=== PATIENT | male | born 1950 | race African-American/Black ===

== ENCOUNTER 2016-06-01 12:27 | Inpatient (IN) ==
[2016-06-01] MEDS ORDERED: KETOROLAC 30 MG/1 ML VIAL IV STA (15:29)
[2016-06-01] MEDS ORDERED: FUROSEMIDE 40 MG/4 ML VIAL IV STA (15:31)
--- NOTE | 2016-06-01 15:34 | Emergency Department Note ---
Arrival - Arrival Chief Complaint: Urogenital - Male Stated Complaint: inflammation (swollen Testicals) frequent urinatio ED Nursing Triage Note: C/O SWOLLEN TESTICLES WITH ONSET TWO DAYS AGO. PT STATES HE HAS URINARY FREQUENCY Mode of Arrival: Wheelchair Limitations: No Limitations Source: Patient Time Seen by Provider: 06/01/16 15:29 - History of Present Illness HPI Narrative: This 66-year-old black male presents with a history of lower extremity edema as well as rapid swelling and tenderness of the scrotal sac over the last 3 days. The patient relates a problem with fluid balance and previous problems in this regard but has been taken off all diuretics due to his renal function. Associated with this has been an ever increasing decline in stream with difficulty genreating flow of late. The patient denies any history of prostate problems, CHF, orthopnea, PND, dyspnea on exertion, or chest pain. He does complain of dysuria, urgency, frequency, and hesitancy without any complaints of chills, fever, nausea, or vomiting. He currently appears in no acute distress. Onset (ago): day(s) (patient presents 3 days post-onset of symptoms) Consistency: constant Allergies/Adverse Reactions: Allergies Allergy/AdvReac Type Severity Reaction Status Date / Time No Known Allergies Allergy Unverified 06/01/16 12:45 Home Medications: Home Medications Medication Instructions Recorded Confirmed Type amLODIPine [Norvasc] 10 mg PO DAILY 06/01/16 06/01/16 History cloNIDine TAB [Catapres Tab] 0.1 mg PO DAILY 06/01/16 06/01/16 History Review of System - Review of System 12 point system: reviewed and no additional remarkable complaints except as stated - Review of System Constitutional: Present: as per HPI Respiratory: Present: as per HPI Cardiovascular: Present: as per HPI Gastrointestinal: Present: as per HPI Genitourinary male: Present: as per HPI Medical,Surgical,& Family Hx - Medical History Cardio: History of: Hypertension Renal: History of: Renal Problems - Family History Family History: Reports;: Family Diabetes, Family Hypertension, Family Stroke - Social History Smoking Status: Never smoker Frequency of Alcohol Use: None Type of Drug Use: None Exam Physical Examination: GENERAL: Well developed, well nourished black male in no acute distress. HEENT: Normocephalic. No trauma. Moist mucous membranes. EOMI. PERRLA. ENT clear NECK: Supple. No adenopathy. CARDIAC: Regular. No murmurs. Heart rate 63 CHEST: Clear to auscultation. No respiratory distress. O2 sat 98% ABDOMEN: Soft. Nontender. Active bowel sounds.: Scrotal edema with bilateral testicular tenderness EXTREMITIES: No trauma. Normal ROM. 1+ pedal edema. SKIN: No diaphoresis. No rash. NEURO: Alert. Neuro intact No focal deficits. Vital Signs: Vital Signs Temperature 98.6 F 06/01/16 12:45 Pulse Rate 63 06/01/16 12:45 Respiratory Rate 18 06/01/16 12:45 Blood Pressure 193/76 06/01/16 12:45 O2 Sat by Pulse Oximetry 98 06/01/16 12:45 Course - Reevaluation(s) Reevaluation #1: Discussed with patient his advancing renal disease and necessity for admission for further diuresis to be done safely. - Consultations Consultation #1: Discussed with Dr. Ansari who will admit for further evaluation and treatment. Results - Labs CBC & BMP: 06/01/16 15:48 06/01/16 15:48 Labs: I reviewed the laboratory and noted the significant abnormalities in renal function as well as mild hyperkalemia and unexpected anemia. - Diagnostic Findings Procedure: Ultrasound: image reviewed by me, report reviewed by me (scrotum bilateral hydroceles right greater than left but generalized edema of the scrotum) Disposition Clinical Impression: advanced scrotal edema, renal insufficiency Case discussed with: patient, patient's family Disposition: Still a Patient Condition: Guarded Time of Disposition: 16:38
[2016-06-01] MEDS ORDERED: FUROSEMIDE 100 MG/10 ML VIAL ONE (15:55)
[2016-06-01] MEDS ORDERED: KETOROLAC 30 MG/1 ML VIAL ONE (15:55)
[2016-06-01 15:57] LABS: Basophils % 0.6 % (0.0-0.8); Eosinophils % 0.4 % (0.00-10.9); Hematocrit 29.2 VOL% (42.0-52.0); Hemoglobin 9.1 GM/DL (14.0-18.0); Immature Granulocytes % 0.4 %; Immature Granulocytes Absolute 0.03 #; Lymphocytes % 14.2 % (21.2-54.2); Mean Corpuscular HGB Conc 31.2 GM/DL (32-36); Mean Corpuscular Hemoglobin 24 PG (27-34); Mean Corpuscular Volume 78.1 FL (87-102); Mean Platelet Volume 10.7 FL (9.6-12.0); Monocytes # 0.5 10*3/uL (0.11-0.8); Monocytes % 7.5 % (1.7-12.7); Neutrophils # 5.4 10*3/uL (1.4-7.4); Neutrophils % 76.9 % (38.7-73.9); Platelet Count 326 T/CUMM (130-400); Red Blood Count 3.74 MC/CUMM (3.8-5.5); Red Cell Distribution Width 14.2 % (9.3-17.3)
[2016-06-01 16:14] LABS: Apearance,Urine CLEAR (Clear); Bilirubin,Urine Negative (Negative); Blood, Urine Small mg/dL (Negative); Glucose,Urine (UA) 150 mg/dL (Negative); Ketones,Urine Negative (Negative); Mucus,Urine Occasional /LPF (Occasional); Nitrite,Urine Negative (Negative); Protein,Urine >=500 MG/DL; RBC,Urine 2 /HPF (0-4); Urine Color Straw (Yellow); Urine Specific Gravity 1.012 (1.001-1.035); Urine Urobilinogen < 2.0 EU/DL (0.2-1.0); WBC,Urine 1 /HPF (0-6)
[2016-06-01 16:25] LABS: Alanine Aminotransferase 17 U/L (16-61); Albumin 2.2 G/DL (3.4-5.0); Alkaline Phosphatase 122 U/L (45-117); Aspartate Amino Transferase 16 U/L (0-37); Bilirubin,Total < 0.39 MG/DL (0.2-1.0); Blood Urea Nitrogen 47 MG/DL (7-18); Calcium 8.7 MG/DL (8.5-10.1); Glucose 122 MG/DL (74-106); Osmolality,Calculated 295.1 MOS/KG (273-304); Potassium 5.6 MMOL/L (3.5-5.1); Sodium 142 MMOL/L (136-145)
--- NOTE | 2016-06-01 16:28 | Ultrasound Report ---
Exam: US scrotum Date: 06/01/2016 3:29 PM Indication: Testicular swelling, pain. No reported trauma Comparison: None Findings: Right testicle. Minimal heterogeneity is noted within the testicular parenchyma. There is preserved color Doppler blood flow and arterial blood flow on spectral analysis within the testicle. The right testicle measures 3.8 x 2.9 x 4.1 cm. A moderate to large right hydrocele with minimal echogenic debris is noted. Right epididymis right epididymal head measures 1.3 x 0.9 cm. Left testicle. Marked edematous changes are noted within the overlying left hemiscrotum. There is a [id number] hydrocele noted. Slight heterogeneity is noted within the testicular parenchyma. The testicle measures 3.9 x 3.1 x 2.8 cm. Color Doppler demonstrates preserved blood flow with arterial Doppler demonstrating a normal arterial waveform within the testicle. Left epididymis. Small digital head cyst is noted measuring up to 8 mm maximum dimension. The right epididymis measures 2 x 1.4 cm Impression: 1. Preserved blood flow within both testicles. Small left hydrocele and moderate to large right hydrocele with some debris suggested. Essentially normal appearance of the epididymis bilaterally. 2. Marked edematous changes of the left hemiscrotum may represent overlying cellulitis or other noninfectious edema. PROCEDURE INTERPRETED AT [facility] DEPARTMENT OF RADIOLOGY Final Report Signed by: Jean Claude Simeon
[2016-06-01] MEDS ORDERED: ONDANSETRON 4 MG/2 ML VIAL IV PRN (16:40)
--- NOTE | 2016-06-01 17:10 | XRay Report ---
Exam: XR chest 1V portable Date: 06/01/2016 4:40 PM Indication: Acute renal failure Comparison: 11/05/2011 Technical: AP portable Findings: Cardiomegaly is present. External cardiac leads are present. No defined effusions. Mediastinum and bony structures are intact. No pneumothorax. Impression: Cardiomegaly without overt decompensation infiltrates or effusions PROCEDURE INTERPRETED AT [facility] DEPARTMENT OF RADIOLOGY Final Report Signed by: Dr. Kam Aaron
[2016-06-01] MEDS ORDERED: ACETAMINOPHEN 325 MG TABLET PO PRN (17:50)
[2016-06-01 17:55] LABS: Prostate Specific Antigen Diag 0.3 NG/ML (0-4)
[2016-06-01] MEDS ORDERED: SODIUM POLYSTYRENE SULFATE 15 GM/60 ML BOTTLE ONE (19:15)
[2016-06-01] MEDS: SODIUM POLYSTYRENE SULFATE 15 GM/60 ML BOTTLE PO SCH ×2 (19:18→23:13)
[2016-06-01] MEDS: INSULIN LISPRO 100 UNIT/ML SUBCUT SCH (21:18)
[2016-06-01] MEDS: FUROSEMIDE 20 MG TABLET PO SCH (21:26)
[2016-06-01] MEDS: METOPROLOL TARTRATE 50 MG TABLET PO SCH (21:26)
[2016-06-01] MEDS: DOCUSATE SODIUM 100 MG CAPSULE PO SCH (21:26)
[2016-06-02] MEDS ORDERED: cloNIDine 0.1 MG TABLET PO ONE (05:00)
[2016-06-02 05:01] LABS: Basophils % 0.6 % (0.0-0.8); Eosinophils # 0.1 10*3/uL (0.0-0.87); Eosinophils % 1.4 % (0.00-10.9); Hematocrit 23.1 VOL% (42.0-52.0); Hemoglobin 7.1 GM/DL (14.0-18.0); Immature Granulocytes % 0.4 %; Immature Granulocytes Absolute 0.02 #; Lymphocytes # 0.9 10*3/uL (1.4-4.0); Lymphocytes % 18.1 % (21.2-54.2); Mean Corpuscular HGB Conc 30.7 GM/DL (32-36); Mean Corpuscular Hemoglobin 24 PG (27-34); Mean Corpuscular Volume 76.5 FL (87-102); Mean Platelet Volume 10.6 FL (9.6-12.0); Monocytes # 0.6 10*3/uL (0.11-0.8); Monocytes % 11.8 % (1.7-12.7); Neutrophils # 3.3 10*3/uL (1.4-7.4); Neutrophils % 67.7 % (38.7-73.9); Platelet Count 280 T/CUMM (130-400); Red Blood Count 3.02 MC/CUMM (3.8-5.5); Red Cell Distribution Width 14.1 % (9.3-17.3); White Blood Count 4.9 T/CUMM (4-12)
[2016-06-02] MEDS: SODIUM POLYSTYRENE SULFATE 15 GM/60 ML BOTTLE PO SCH ×3 (05:06→16:34)
[2016-06-02 05:19] LABS: Calcium 7.8 MG/DL (8.5-10.1); Osmolality,Calculated 304.4 MOS/KG (273-304)
[2016-06-02 05:26] LABS: Albumin 1.7 G/DL (3.4-5.0); Bilirubin,Total 1.3 MG/DL (0.2-1.0); Calcium 7.9 MG/DL (8.5-10.1); Magnesium 2.2 MG/DL (1.8-2.4); Osmolality,Calculated 303.4 MOS/KG (273-304); Potassium 5.1 MMOL/L (3.5-5.1); Risk Ratio 3.46; Total Protein 5.3 G/DL (6.4-8.3); VLDL CHOLESTEROL 18.6 MG/DL
[2016-06-02 05:45] LABS: Free T4 (Free Thyroxine) 1.11 NG/DL (0.76-1.46); Thyroid Stimulating Hormone 5.1 uIU/ml (0.358-3.74)
[2016-06-02] MEDS ORDERED: DEXTROSE 50% 25 GM/50 ML VIAL IV PRN (08:20)
[2016-06-02] MEDS ORDERED: GLUCAGON 1 MG VIAL IM PRN (08:20)
--- NOTE | 2016-06-02 08:25 | Family Practice History&Phys ---
Assessment and Plan (1) renal insufficiency Status: Acute Assessment and plan: Last creatinine when seeing Dr. Oliveira was 3.6. It has almost doubled since that time. Current Visit: Yes (2) benign prostatic hypertrophy Status: Chronic Assessment and plan: Patient is having significant problems with frequency of urination and hesitancy.. May be urinary tract retention is causing worsening of his renal status. I have ordered Gonzalez catheter placed to check for residual. Also consult to nephrology ordered bilateral renal ultrasounds Current Visit: Yes (3) peripheral edema Status: Chronic Assessment and plan: Secondary to his ranal insufficiency Current Visit: Yes (4) anemia probably anemia of chronic diseas Status: Acute Assessment and plan: We will monitor closely. If continues to decline may need to transfuse Current Visit: Yes (5) hypertension Status: Chronic Assessment and plan: Procedure poorly controlled. Have modified medications Current Visit: Yes (6) type 2 diabetes mellitus Status: Chronic Assessment and plan: Has started sliding scale we'll monitor closely Current Visit: Yes History of Present Illness Chief complaint: edema and renal insufficiency History of present illness: Mr. Bazzi is a 66 year old male This 66-year-old black male presents with a history of lower extremity edema as well as rapid swelling and tenderness of the scrotal sac over the last 3 days. The patient relates a problem with fluid balance and previous problems in this regard but has been taken off all diuretics due to his renal function. Associated with this has been an ever increasing decline in stream with difficulty genreating flow of late. The patient denies any history of prostate problems, CHF, orthopnea, PND, dyspnea on exertion, or chest pain. He does complain of dysuria, urgency, frequency, and hesitancy without any complaints of chills, fever, nausea, or vomiting. He currently appears in no acute distress. In view of the acute changes will admit further evaluation therapy Home Medications Medication Instructions Recorded Confirmed Type amLODIPine [Norvasc] 10 mg PO DAILY 06/01/16 06/01/16 History cloNIDine TAB [Catapres Tab] 0.1 mg PO DAILY 06/01/16 06/01/16 History Allergies Allergy/AdvReac Type Severity Reaction Status Date / Time No Known Allergies Allergy Unverified 06/01/16 12:45 Medical,Surgical,& Family Hx - Medical History Cardio: History of: Hypertension Endocrine: History of: Diabetes Mellitus (NIDDM), Thyroid Disorder Renal: History of: Renal Problems - Surgical History HEENT Surgeries: Surgical HX of: Eye Surgery (bilateral cataracts and detached retina) - Family History Family History: Reports;: Family Diabetes, Family Hypertension, Family Stroke - Social History Smoking Status: Never smoker Frequency of Alcohol Use: None Type of Drug Use: None Marital Status: Lives With:: Spouse Functional capacity: independent ambulation Exam - Constitutional Vitals: Period Temp Pulse Resp BP Sys/Vazquez Pulse Ox Last 24 Hr 98.1 F-99.0 F 50-62 12-20 166-202/76-88 97-100 General appearance: mild distress - Head Head exam: Present: normal inspection - ENT ENT exam: Present: normal exam - Neck Neck exam: Present: normal inspection - Respiratory Respiratory exam: Present: clear to auscultation bilaterally - Cardiovascular Cardiovascular exam: Present: regular rate and rhythm - GI/Abdominal GI/Abdominal exam: Present: normal bowel sounds, soft - Extremities Exam Extremities exam: Present: other (patient is significant edema of the scrotum and lower extremities) - Back Exam Back exam: Present: normal inspection - Neurological Exam Neurological exam: Present: alert - Psychiatric Psychiatric exam: Present: normal affect - Skin Skin exam: Present: normal color Results - Labs CBC & BMP: 06/02/16 04:26 06/02/16 04:26
--- NOTE | 2016-06-02 08:39 | EKG Report ---
Stationary ECG Study [facility] Test Date: 06/02/2016 7:30:14 AM Pat Name: JODY GOODE Department: Room: 270 Gender: M Pattern Attendant: AIREL : 1950 Requested by: Azael Nguyễn Order Number: [id number] Reading MD: JENNIFER ALBERT Intervals [place] Rate: 48 P: 42 VT: 168 QRS: -21 QRSD: 97 T: 150 QT: 476 QTc: 444 Interpretive Statements SINUS BRADYCARDIA INCOMPLETE RIGHT BUNDLE BRANCH BLOCK PROBABLE SEPTAL MYOCARDIAL INFARCTION, OF INDETERMINATE AGE MODERATE T-WAVE ABNORMALITY, CONSIDER ANTEROLATERAL ISCHEMIA Electronically Signed On 06-03-16 21:40:23 STAFF REPORTER by JENNIFER ALBERT [email or web address]
--- NOTE | 2016-06-02 08:59 | Ultrasound Report ---
Bilateral renal ultrasound. Indication: Renal insufficiency. No prior studies. The kidneys are normal in size. The right kidney measures 10.5 x 4.0 x 5.4 cm and the left measures 9.5 x 6.0 x 5.5 cm. The cortical thickness is normal bilaterally. There is increased parenchymal echogenicity of the kidneys, right more so than left. This is a finding which can be seen with medical renal disease. Arterial flow is documented to each kidney. There is a 9 mm cyst at the inferior pole of the left kidney. No hydronephrosis. No solid masses. No abnormal calcifications. Impression: Increased parenchymal echogenicity, often seen with medical renal disease. Tiny left inferior pole renal cyst. PROCEDURE INTERPRETED AT [facility] DEPARTMENT OF RADIOLOGY Final Report Signed by: Dr. Dorota Pozo
[2016-06-02] MEDS ORDERED: cloNIDine 0.1 MG TABLET PO SCH (09:00)
[2016-06-02 09:31] LABS: Hematocrit 26.2 VOL% (42.0-52.0); Hemoglobin 8.1 GM/DL (14.0-18.0)
[2016-06-02 09:32] LABS: Basophils % 0.6 % (0.0-0.8); Eosinophils # 0.1 10*3/uL (0.0-0.87); Eosinophils % 1.5 % (0.00-10.9); Hematocrit 25.6 VOL% (42.0-52.0); Hemoglobin 8.1 GM/DL (14.0-18.0); Immature Granulocytes % 0.4 %; Immature Granulocytes Absolute 0.02 #; Lymphocytes # 0.8 10*3/uL (1.4-4.0); Mean Corpuscular HGB Conc 31.6 GM/DL (32-36); Mean Corpuscular Hemoglobin 24 PG (27-34); Mean Corpuscular Volume 77.1 FL (87-102); Mean Platelet Volume 10.8 FL (9.6-12.0); Monocytes # 0.5 10*3/uL (0.11-0.8); Monocytes % 9.1 % (1.7-12.7); Neutrophils % 73.4 % (38.7-73.9); Platelet Count 320 T/CUMM (130-400); Red Blood Count 3.32 MC/CUMM (3.8-5.5); Red Cell Distribution Width 14.2 % (9.3-17.3); White Blood Count 5.4 T/CUMM (4-12)
[2016-06-02] MEDS: INSULIN LISPRO 100 UNIT/ML SUBCUT SCH ×5 (09:40→22:17)
[2016-06-02] MEDS: DOCUSATE SODIUM 100 MG CAPSULE PO SCH ×2 (09:43→20:05)
[2016-06-02] MEDS: FUROSEMIDE 20 MG TABLET PO SCH ×2 (09:43→16:32)
[2016-06-02] MEDS: cloNIDine 0.1 MG TABLET PO SCH ×2 (09:43→14:53)
[2016-06-02] MEDS: amLODIPine 10 MG TABLET PO SCH (09:43)
[2016-06-02] MEDS: METOPROLOL TARTRATE 50 MG TABLET PO SCH ×2 (09:43→20:05)
[2016-06-02] MEDS: PANTOPRAZOLE 40 MG TABLET PO SCH (09:46)
[2016-06-02 10:12] LABS: Folate 8.7 NG/ML (5.4-24.0); Vitamin B12 564 PG/ML (211-911)
[2016-06-02 10:37] LABS: Sedimentation Rate-Westergren 124 MM/HR (0-20)
--- NOTE | 2016-06-02 12:59 | Nephrology Progress Note ---
Nephrology - PN: Subj Interval history: The patient is a 66-year-old man who presented with scrotal edema and tenderness. He is also had an increase in lower extremity edema. He has a history of chronic renal failure secondary to diabetic nephropathy. His last creatinine in December 2015 was 3.1. It was 3.6 and November 2015. He reports urinary hesitancy but no hematuria. He denies flank pain. He has had no fever or chills. He denies orthopnea or PND. Exam (PN)-Nephrology - Vital Signs Vital signs: Period Temp Pulse Resp BP Sys/Vazquez Pulse Ox Last 24 Hr 98.1 F-181 F 48-62 12-20 166-202/76-88 96-100 Exam: Gen.: Alert and oriented x3. ENT: Pupils equal round reactive to light. EOMs intact. Mucous membranes moist. Neck: Supple. No JVD or bruit. Cardiovascular: Regular rate and rhythm. No murmur rub or gallop Lungs: Clear Abdomen: Soft. Nontender. Positive bowel sounds. No organomegaly. Scrotal edema present Extremities: 1-2+ lower extremity edema - Lab 06/02/16 09:18 06/02/16 04:26 Most recent lab results Calcium 7.9 MG/DL (8.5-10.1) L 06/02/16 04:26 Magnesium 2.2 MG/DL (1.8-2.4) 06/02/16 04:26 Assessment and Plan (1) Chronic kidney disease, stage IV (severe) Status: Acute Assessment and plan: 66-year-old man admitted with: * Scrotal edema. He has bilateral hydrocele. * Chronic renal failure, stage IV. Renal function has declined over the past 5 months. He has underlying diabetic nephropathy. He denies use of NSAIDs recently. However he was given one dose of Toradol in the ER. * Proteinuria. Albumin is quite low. He probably has nephrotic syndrome secondary to diabetes * Diabetes mellitus * Hypertension * Anemia. Current Visit: Yes (2) anemia probably anemia of chronic diseas Status: Acute Current Visit: Yes (3) benign prostatic hypertrophy Status: Chronic Current Visit: Yes (4) hypertension Status: Chronic Current Visit: Yes (5) type 2 diabetes mellitus Status: Chronic Current Visit: Yes (6) Proteinuria Status: Acute Current Visit: Yes
[2016-06-02 15:04] LABS: Hematocrit 21.6 VOL% (42.0-52.0)
[2016-06-02 15:05] LABS: Hemoglobin 6.8 GM/DL (14.0-18.0)
[2016-06-02] MEDS ORDERED: SODIUM CHLORIDE 0.9% 250 ML IV PRN (17:55)
[2016-06-02] MEDS: TAMSULOSIN 0.4 MG CAPSULE PO SCH (20:05)
[2016-06-02] MEDS ORDERED: amLODIPine 5 MG TABLET PO ONE (21:51)
[2016-06-03 02:04] LABS: Apearance,Urine CLEAR (Clear); Bacteria,Urine Occasional /HPF (Few); Bilirubin,Urine Negative (Negative); Blood, Urine Small mg/dL (Negative); Glucose,Urine (UA) 50 mg/dL (Negative); Ketones,Urine Negative (Negative); Nitrite,Urine Negative (Negative); Protein,Urine >=500 MG/DL; RBC,Urine 1 /HPF (0-4); Urine Color Straw (Yellow); Urine Specific Gravity 1.005 (1.001-1.035); Urine Urobilinogen < 2.0 EU/DL (0.2-1.0); WBC,Urine 1 /HPF (0-6)
[2016-06-03] MEDS: INSULIN LISPRO 100 UNIT/ML SUBCUT SCH ×3 (08:02→16:41)
[2016-06-03 08:03] LABS: Basophils % 0.4 % (0.0-0.8); Eosinophils # 0.1 10*3/uL (0.0-0.87); Eosinophils % 1.7 % (0.00-10.9); Hematocrit 26.7 VOL% (42.0-52.0); Immature Granulocytes % 0.2 %; Immature Granulocytes Absolute 0.01 #; Lymphocytes % 18.5 % (21.2-54.2); Mean Corpuscular HGB Conc 31.5 GM/DL (32-36); Mean Corpuscular Hemoglobin 25 PG (27-34); Mean Platelet Volume 10.7 FL (9.6-12.0); Monocytes # 0.7 10*3/uL (0.11-0.8); Monocytes % 12.6 % (1.7-12.7); Neutrophils # 3.5 10*3/uL (1.4-7.4); Neutrophils % 66.6 % (38.7-73.9); Red Blood Count 3.38 MC/CUMM (3.8-5.5); Red Cell Distribution Width 14.4 % (9.3-17.3); White Blood Count 5.3 T/CUMM (4-12)
[2016-06-03] MEDS: SODIUM CHLORIDE 0.45% 1,000 ML IV SCH ×2 (08:03→08:40)
[2016-06-03 08:13] LABS: Hemoglobin 8.4 GM/DL (14.0-18.0); Platelet Count 246 T/CUMM (130-400)
[2016-06-03 08:31] LABS: Alanine Aminotransferase 10 U/L (16-61); Albumin 1.6 G/DL (3.4-5.0); Alkaline Phosphatase 89 U/L (45-117); Aspartate Amino Transferase 10 U/L (0-37); Bilirubin,Total < 0.39 MG/DL (0.2-1.0); Blood Urea Nitrogen 43 MG/DL (7-18); Calcium 7.3 MG/DL (8.5-10.1); Glucose 120 MG/DL (74-106); Potassium 4.3 MMOL/L (3.5-5.1); Sodium 143 MMOL/L (136-145); Total Protein 5.2 G/DL (6.4-8.3)
[2016-06-03] MEDS: amLODIPine 10 MG TABLET PO SCH (08:33)
[2016-06-03] MEDS: PANTOPRAZOLE 40 MG TABLET PO SCH (08:33)
[2016-06-03] MEDS: FUROSEMIDE 20 MG TABLET PO SCH ×2 (08:33→16:40)
[2016-06-03] MEDS: DOCUSATE SODIUM 100 MG CAPSULE PO SCH ×2 (08:33→20:08)
[2016-06-03] MEDS: METOPROLOL TARTRATE 50 MG TABLET PO SCH ×2 (08:34→20:08)
[2016-06-03] MEDS: hydrALAZINE 25 MG TABLET PO SCH ×3 (08:42→16:41)
[2016-06-03 09:35] LABS: Albumin (SPE) 1.9 G/DL (3.2-5.3); Total Protein (Chem) 5.3 G/DL (6.4-8.2)
[2016-06-03 09:36] LABS: Albumin (SPE) Rel % 35.5 %; Alpha 1 (SPE) 0.3 G/DL (0.1-0.4); Alpha 1 (SPE) Rel % 5.3 %; Alpha 2 (SPE) 1.1 G/DL (0.4-1.0); Alpha 2 (SPE) Rel % 20.7 %; Beta (SPE) 0.7 G/DL (0.5-1.1); Beta (SPE) Rel % 13.4 %; Gamma (SPE) 1.3 G/DL (0.7-1.7); Gamma (SPE) Rel % 25.1 %
[2016-06-03 09:44] LABS: Albumin (UPER) 405.3 MG/DL; Albumin (UPER) Rel% 61.5 %; Alpha 1 (UPER) 61.3 MG/DL
[2016-06-03 09:45] LABS: Alpha 1 (UPER) Rel% 9.3 %; Alpha 2 (UPER) 34.3 MG/DL; Alpha 2 (UPER) Rel % 5.2 %; Beta (UPER) 50.7 MG/DL; Beta (UPER) Rel % 7.7 %; Gamma (UPER) 107.4 MG/DL; Gamma (UPER) Rel % 16.3 %
[2016-06-03 11:32] LABS: Hemoglobin A1 (Alkaline) 97.5 % (96.5-98.5); Hemoglobin A2 (Alkaline) 2.5 % (1.5-3.5)
--- NOTE | 2016-06-03 17:01 | Nephrology Progress Note ---
Nephrology - PN: Subj Interval history: He feels better overall today. No shortness of breath on room air. Exam (PN)-Nephrology - Vital Signs Vital signs: Period Temp Pulse Resp BP Sys/Vazquez Pulse Ox Last 24 Hr 96.9 F-98.8 F 45-51 16-20 175-228/75-97 96-98 Exam: ENT: Normal Cardiovascular: Regular rate and rhythm. No murmur rub or gallop Lungs: Clear Extremities: 1-2+ edema - Lab 06/03/16 07:50 06/03/16 07:50 Most recent lab results Calcium 7.3 MG/DL (8.5-10.1) L 06/03/16 07:50 Magnesium 2.2 MG/DL (1.8-2.4) 06/02/16 04:26 Assessment and Plan (1) Chronic kidney disease, stage IV (severe) Status: Acute Assessment and plan: 66-year-old man admitted with: * Scrotal edema. He has bilateral hydrocele. * Chronic renal failure, stage IV. Slightly improved renal function * Proteinuria. Albumin is quite low. Urine protein to creatinine ratio 5.3. This is consistent with nephrotic syndrome * Diabetes mellitus * Hypertension. Hydralazine added. Amlodipine will be decreased. It may be worsening lower activity edema * Anemia. Current Visit: Yes (2) anemia probably anemia of chronic diseas Status: Acute Current Visit: Yes (3) benign prostatic hypertrophy Status: Chronic Current Visit: Yes (4) hypertension Status: Chronic Current Visit: Yes (5) type 2 diabetes mellitus Status: Chronic Current Visit: Yes (6) Proteinuria Status: Acute Current Visit: Yes
[2016-06-03] MEDS ORDERED: amLODIPine 5 MG TABLET PO SCH (17:02)
--- NOTE | 2016-06-03 18:14 | Family Practice Progress Note ---
Family Practice - PN: Subj Interval history: Patient states that he generally feels better today. Blood pressure is still poorly controlled. Pulses been decreased. Discussed with Dr. Oliveira and will modify his hypertensive medications. His a.m. hemoglobin and hematocrit are stable at present. Was given 2 units of blood yesterday. His edema is slowly improving. Creatinine slightly improved at 5.5 today. I have ordered additional studies to evaluate his malignant hypertension. Hopefully will continue to improve Exam (Progress Note) - Constitutional Vitals: Period Temp Pulse Resp BP Sys/Vazquez Pulse Ox Last 24 Hr 96.9 F-98.8 F 45-51 16-20 175-228/75-97 96-98 Results - Labs CBC & BMP: 06/03/16 07:50 06/03/16 07:50 Assessment and Plan (1) renal insufficiency Status: Acute Assessment and plan: Last creatinine when seeing Dr. Oliveira was 3.6. It has almost doubled since that time. Current Visit: Yes (2) benign prostatic hypertrophy Status: Chronic Assessment and plan: Patient is having significant problems with frequency of urination and hesitancy.. May be urinary tract retention is causing worsening of his renal status. I have ordered Gonzalez catheter placed to check for residual. Also consult to nephrology ordered bilateral renal ultrasounds Current Visit: Yes (3) peripheral edema Status: Chronic Assessment and plan: Secondary to his ranal insufficiency Current Visit: Yes (4) anemia probably anemia of chronic diseas Status: Acute Assessment and plan: We will monitor closely. If continues to decline may need to transfuse Current Visit: Yes (5) hypertension Status: Chronic Assessment and plan: Procedure poorly controlled. Have modified medications Current Visit: Yes (6) type 2 diabetes mellitus Status: Chronic Assessment and plan: Has started sliding scale we'll monitor closely Current Visit: Yes
[2016-06-03] MEDS: TAMSULOSIN 0.4 MG CAPSULE PO SCH (20:08)
[2016-06-04] MEDS: INSULIN LISPRO 100 UNIT/ML SUBCUT SCH ×5 (00:28→20:07)
[2016-06-04 05:40] LABS: Calcium 7.5 MG/DL (8.5-10.1); Osmolality,Calculated 297.8 MOS/KG (273-304); Potassium 4.4 MMOL/L (3.5-5.1)
[2016-06-04] MEDS: SODIUM CHLORIDE 0.45% 1,000 ML IV SCH (09:15)
[2016-06-04] MEDS: PANTOPRAZOLE 40 MG TABLET PO SCH (09:16)
[2016-06-04] MEDS: DOCUSATE SODIUM 100 MG CAPSULE PO SCH ×2 (09:16→20:00)
[2016-06-04] MEDS: FUROSEMIDE 20 MG TABLET PO SCH ×2 (09:16→15:41)
[2016-06-04] MEDS: METOPROLOL TARTRATE 50 MG TABLET PO SCH (09:16)
[2016-06-04 09:33] LABS: Basophils % 0.4 % (0.0-0.8); Eosinophils # 0.1 10*3/uL (0.0-0.87); Eosinophils % 1.7 % (0.00-10.9); Hematocrit 28.8 VOL% (42.0-52.0); Hemoglobin 9.1 GM/DL (14.0-18.0); Immature Granulocytes % 0.4 %; Immature Granulocytes Absolute 0.02 #; Lymphocytes # 0.9 10*3/uL (1.4-4.0); Lymphocytes % 17.5 % (21.2-54.2); Mean Corpuscular HGB Conc 31.6 GM/DL (32-36); Mean Corpuscular Hemoglobin 25 PG (27-34); Mean Corpuscular Volume 78.5 FL (87-102); Mean Platelet Volume 10.9 FL (9.6-12.0); Monocytes # 0.6 10*3/uL (0.11-0.8); Monocytes % 11.2 % (1.7-12.7); Neutrophils # 3.7 10*3/uL (1.4-7.4); Neutrophils % 68.8 % (38.7-73.9); Platelet Count 267 T/CUMM (130-400); Red Blood Count 3.67 MC/CUMM (3.8-5.5); Red Cell Distribution Width 13.7 % (9.3-17.3); White Blood Count 5.4 T/CUMM (4-12)
--- NOTE | 2016-06-04 12:49 | Nephrology Progress Note ---
Nephrology - PN: Subj Interval history: He feels better overall. He denies shortness of breath or chest pain. Heart rate has been in the low to mid 40s. Exam (PN)-Nephrology - Vital Signs Vital signs: Period Temp Pulse Resp BP Sys/Vazquez Pulse Ox Last 24 Hr 97.3 F-98.2 F 16-48 16-18 177-193/75-91 98-99 Exam: ENT: Normal Cardiovascular: Regular rate and rhythm. No murmur rub or gallop Lungs: Clear Extremities: 1-2+ edema - Lab 06/04/16 09:01 06/04/16 04:30 Most recent lab results Calcium 7.5 MG/DL (8.5-10.1) L 06/04/16 04:30 Magnesium 2.2 MG/DL (1.8-2.4) 06/02/16 04:26 Assessment and Plan (1) Chronic kidney disease, stage IV (severe) Status: Acute Assessment and plan: 66-year-old man admitted with: * Scrotal edema. He has bilateral hydrocele. * Chronic renal failure, stage IV. Slowly improving * Proteinuria. Albumin is quite low. Urine protein to creatinine ratio 5.3. This is consistent with nephrotic syndrome * Diabetes mellitus * Hypertension. Beta joseph will be decreased DT bradycardia. Hydralazine will be increased * Anemia. Current Visit: Yes (2) anemia probably anemia of chronic diseas Status: Acute Current Visit: Yes (3) benign prostatic hypertrophy Status: Chronic Current Visit: Yes (4) hypertension Status: Chronic Current Visit: Yes (5) type 2 diabetes mellitus Status: Chronic Current Visit: Yes (6) Proteinuria Status: Acute Current Visit: Yes
--- NOTE | 2016-06-04 18:26 | Family Practice Progress Note ---
Family Practice - PN: Subj Interval history: Patient states that he feels better overall. He can see some improvement in his edema. His weight is actually increased. Reviewed her lab studies which are stable today. His blood pressures have remained significantly elevated. He also has had a significant bradycardia. Decreased his metoprolol yesterday but his pulses remained in the 40s since that time. Dr. Oliveira for the reduced dosage of metoprolol today an increased dosage of Apresoline. His blood pressures have remained significantly elevated. Multiple studies are still pending. We will continue present evaluation and treatment plan Appearance-general alert and oriented HEENT-no acute changes Heart-regular rate and rhythm no murmurs Lungs-clear to auscultation Abdomen-soft and nontender still has some scrotal edema Extremities-slight edema but improved overall Neurological exam-stable to present Exam (Progress Note) - Constitutional Vitals: Period Temp Pulse Resp BP Sys/Vazquez Pulse Ox Last 24 Hr 97.3 F-98.2 F 16-53 16-20 185-195/78-91 98-99 Results - Labs CBC & BMP: 06/04/16 09:01 06/04/16 04:30 Assessment and Plan (1) renal insufficiency Status: Acute Assessment and plan: Last creatinine when seeing Dr. Oliveira was 3.6. It has almost doubled since that time. Current Visit: Yes (2) benign prostatic hypertrophy Status: Chronic Assessment and plan: Patient is having significant problems with frequency of urination and hesitancy.. May be urinary tract retention is causing worsening of his renal status. I have ordered Gonzalez catheter placed to check for residual. Also consult to nephrology ordered bilateral renal ultrasounds Current Visit: Yes (3) peripheral edema Status: Chronic Assessment and plan: Secondary to his ranal insufficiency Current Visit: Yes (4) anemia probably anemia of chronic diseas Status: Acute Assessment and plan: We will monitor closely. If continues to decline may need to transfuse Current Visit: Yes (5) hypertension Status: Chronic Assessment and plan: Procedure poorly controlled. Have modified medications Current Visit: Yes (6) type 2 diabetes mellitus Status: Chronic Assessment and plan: Has started sliding scale we'll monitor closely Current Visit: Yes
--- NOTE | 2016-06-04 18:37 | ECHO Report ---
Jluis Hussain Exam Date: 06/04/2016 10:28 Referring Physician: Technologist: Viridiana Jhaveri RDCS Age: 66 Ht (in): Wt (lb): Gender: M Exam Location: [facility] ([place]) Echo Indications: Chronic kidney disease, stage 4 (severe), Peripheral edema, Anemia, NIDDM, Essential (primary) hypertension BP: / HR: Rhythm: Sinus Technical Quality: IMPRESSIONS Normal left ventricular size, with severe concentric hypertrophy, without outflow tract obstruction. Normal systolic function, estimated left ventricle ejection fraction 60%. Grade 1 diastolic dysfunction. Mild biatrial enlargement. Mild mitral insufficiency. Moderate pulmonary hypertension. Small pericardial effusion. MEASUREMENTS (Male / Female) Normal Values 2D ECHO LV Diastolic Diameter PLAX 5.5 cm 4.2 - 5.9 / 3.9 - 5.3 cm LV Systolic Diameter PLAX 3.3 cm LV Fractional Shortening PLAX 39.6 % IVS Diastolic Thickness 1.9 cm 0.6 - 1.0 / 0.6 - 0.9 cm LVPW Diastolic Thickness 1.9 cm 0.6 - 1.0 / 0.6 - 0.9 cm RV Internal Dim ED PLAX 3.1 cm Aortic Root Diameter 3.6 cm LA Systolic Diameter LX 4.6 cm 3.0 - 4.0 / 2.7 - 3.8 cm DOPPLER TR Peak Velocity 345.0 cm/s TR Peak Gradient 47.6 mmHg FINDINGS Left Ventricle Normal left ventricular size, with severe concentric hypertrophy, without outflow tract obstruction. Normal systolic function, estimated left ventricle ejection fraction 60%. Grade 1 diastolic dysfunction. Right Ventricle The right ventricle is normal in size and function. Right Atrium The right atrium is mildly enlarged. Left Atrium The left atrium is mildly enlarged. Mitral Valve Structurally normal mitral valve, with mild insufficiency. Aortic Valve Structurally normal aortic valve, without stenosis or insufficiency. Tricuspid Valve Morphologically normal tricuspid valve. Mild tricuspid valve regurgitation. Tricuspid regurgitation velocities suggest a PAP of 58 mmHg. Pulmonic Valve Morphologically normal pulmonic valve. Trace pulmonary valve regurgitation. Pericardium Small amount of concentric pericardial effusion, up to 0.8 cm. No echocardiographic signs of tamponade. Aorta Normal ascending aorta dimension. Jean-Paul Low (Electronically Signed) Final Date: 04 June 2016 18:36
[2016-06-04] MEDS: TAMSULOSIN 0.4 MG CAPSULE PO SCH (20:00)
[2016-06-05 05:45] LABS: Basophils % 0.5 % (0.0-0.8); Eosinophils # 0.1 10*3/uL (0.0-0.87); Eosinophils % 1.2 % (0.00-10.9); Hematocrit 28.4 VOL% (42.0-52.0); Hemoglobin 9.3 GM/DL (14.0-18.0); Immature Granulocytes % 0.3 %; Immature Granulocytes Absolute 0.02 #; Lymphocytes # 0.7 10*3/uL (1.4-4.0); Lymphocytes % 11.8 % (21.2-54.2); Mean Corpuscular HGB Conc 32.7 GM/DL (32-36); Mean Corpuscular Hemoglobin 25 PG (27-34); Mean Corpuscular Volume 76.3 FL (87-102); Mean Platelet Volume 11.1 FL (9.6-12.0); Monocytes # 0.6 10*3/uL (0.11-0.8); Monocytes % 9.5 % (1.7-12.7); Neutrophils # 4.4 10*3/uL (1.4-7.4); Neutrophils % 76.7 % (38.7-73.9); Platelet Count 288 T/CUMM (130-400); Red Blood Count 3.72 MC/CUMM (3.8-5.5); Red Cell Distribution Width 13.9 % (9.3-17.3); White Blood Count 5.8 T/CUMM (4-12)
[2016-06-05 06:29] LABS: Calcium 7.4 MG/DL (8.5-10.1); Potassium 4.5 MMOL/L (3.5-5.1)
[2016-06-05] MEDS: PANTOPRAZOLE 40 MG TABLET PO SCH (08:56)
[2016-06-05] MEDS: DOCUSATE SODIUM 100 MG CAPSULE PO SCH ×2 (08:56→20:46)
[2016-06-05] MEDS: FUROSEMIDE 20 MG TABLET PO SCH ×2 (08:57→15:19)
[2016-06-05] MEDS: INSULIN LISPRO 100 UNIT/ML SUBCUT SCH ×4 (08:57→20:46)
[2016-06-05] MEDS: METOPROLOL TARTRATE 50 MG TABLET PO SCH (08:57)
[2016-06-05] MEDS: SODIUM CHLORIDE 0.45% 1,000 ML IV SCH (13:15)
--- NOTE | 2016-06-05 14:30 | Family Practice Progress Note ---
Family Practice - PN: Subj Interval history: Patient was admitted to the emergency room complaining of swelling in scrotum and lower extremities over the last several days. The patient was seen in the emergency room noted to have significant scrotal edema and was found to have a elevated creatinine of 6. Previous recorded creatinine was 3.2. Patient has been seen by Dr. Malachi Oliveira in the past and arrange follow-up appointments. Patient has not complied. I have not seen the patient in a number of months. Apparently his blood pressures have been running 180s-200 systolic range at home. She is gone over several weeks. His systolic blood pressure was 200 in the emergency room. Patient has continued to improve throughout admission but we have had significant difficulty controlling his hypertension. Have tried maximum dose of multiple meds but blood pressures remain significantly elevated. Had to reduce the beta blockers as his pulse got down in the 40s. This presently on the maximum dose of Apresoline, Catapres, Norvasc. And he was on metoprolol 100 twice daily for reducing to present dose. I discussed with Dr. Oliveira and will try to stop the Norvasc and start her on nifedipine. She felt that some of the edema could be secondary to the Norvasc but most likely is related to protein deficit. Cardiac echo revealed concentric hypertrophy with ejection fracture of 60%. His creatinine has improved slightly to 5.3 this p.m.. I have discussed in detail with patient and family and will have patient increase activity. Hopefully will begin to see an improvement in blood pressures. If blood pressure stabilizes may consider discharge over the weekend. Exam (Progress Note) - Constitutional Vitals: Period Temp Pulse Resp BP Sys/Vazquez Pulse Ox Last 24 Hr 96.8 F-97.8 F 43-54 16-20 160-205/79-88 93-99 Results - Labs CBC & BMP: 06/05/16 05:08 06/05/16 05:08 Assessment and Plan (1) renal insufficiency Status: Acute Assessment and plan: Last creatinine when seeing Dr. Oliveira was 3.6. It has almost doubled since that time. Current Visit: Yes (2) benign prostatic hypertrophy Status: Chronic Assessment and plan: Patient is having significant problems with frequency of urination and hesitancy.. May be urinary tract retention is causing worsening of his renal status. I have ordered Gonzalez catheter placed to check for residual. Also consult to nephrology ordered bilateral renal ultrasounds Current Visit: Yes (3) peripheral edema Status: Chronic Assessment and plan: Secondary to his ranal insufficiency Current Visit: Yes (4) anemia probably anemia of chronic diseas Status: Acute Assessment and plan: We will monitor closely. If continues to decline may need to transfuse Current Visit: Yes (5) hypertension Status: Chronic Assessment and plan: Procedure poorly controlled. Have modified medications Current Visit: Yes (6) type 2 diabetes mellitus Status: Chronic Assessment and plan: Has started sliding scale we'll monitor closely Current Visit: Yes
--- NOTE | 2016-06-05 16:22 | Nephrology Progress Note ---
Nephrology - PN: Subj Interval history: He denies shortness of breath or chest pain. Blood pressure remains elevated. Bradycardia has improved. Exam (PN)-Nephrology - Vital Signs Vital signs: Period Temp Pulse Resp BP Sys/Vazquez Pulse Ox Last 24 Hr 96.8 F-97.8 F 43-54 16-20 160-205/80-88 93-99 Exam: ENT: Normal Cardiovascular: Regular rate and rhythm. No murmur rub or gallop Lungs: Clear Extremities: 2+ edema - Lab 06/05/16 05:08 06/05/16 05:08 Most recent lab results Calcium 7.4 MG/DL (8.5-10.1) L 06/05/16 05:08 Magnesium 2.2 MG/DL (1.8-2.4) 06/02/16 04:26 Assessment and Plan (1) Chronic kidney disease, stage IV (severe) Status: Acute Assessment and plan: 66-year-old man admitted with: * Scrotal edema. He has bilateral hydrocele. * Chronic renal failure, stage IV. Slowly improving * Proteinuria. Albumin is quite low. Urine protein to creatinine ratio 5.3. This is consistent with nephrotic syndrome * Diabetes mellitus * Hypertension. Long-acting nifedipine has been added * Anemia. Current Visit: Yes (2) anemia probably anemia of chronic diseas Status: Acute Current Visit: Yes (3) benign prostatic hypertrophy Status: Chronic Current Visit: Yes (4) hypertension Status: Chronic Current Visit: Yes (5) type 2 diabetes mellitus Status: Chronic Current Visit: Yes (6) Proteinuria Status: Acute Current Visit: Yes
[2016-06-05] MEDS: TAMSULOSIN 0.4 MG CAPSULE PO SCH (20:46)
[2016-06-06 04:30] LABS: Basophils % 0.4 % (0.0-0.8); Eosinophils # 0.1 10*3/uL (0.0-0.87); Eosinophils % 1.1 % (0.00-10.9); Hematocrit 28.5 VOL% (42.0-52.0); Hemoglobin 9.1 GM/DL (14.0-18.0); Immature Granulocytes % 0.4 %; Immature Granulocytes Absolute 0.02 #; Lymphocytes # 0.8 10*3/uL (1.4-4.0); Lymphocytes % 14.9 % (21.2-54.2); Mean Corpuscular HGB Conc 31.9 GM/DL (32-36); Mean Corpuscular Hemoglobin 25 PG (27-34); Mean Corpuscular Volume 78.5 FL (87-102); Monocytes # 0.5 10*3/uL (0.11-0.8); Monocytes % 10.3 % (1.7-12.7); Neutrophils # 3.8 10*3/uL (1.4-7.4); Neutrophils % 72.9 % (38.7-73.9); Platelet Count 272 T/CUMM (130-400); Red Blood Count 3.63 MC/CUMM (3.8-5.5); Red Cell Distribution Width 13.9 % (9.3-17.3); White Blood Count 5.2 T/CUMM (4-12)
[2016-06-06 04:58] LABS: Calcium 7.3 MG/DL (8.5-10.1); Potassium 4.5 MMOL/L (3.5-5.1)
[2016-06-06] MEDS: DOCUSATE SODIUM 100 MG CAPSULE PO SCH ×2 (08:30→20:40)
[2016-06-06] MEDS: METOPROLOL TARTRATE 50 MG TABLET PO SCH (08:30)
[2016-06-06] MEDS: FUROSEMIDE 20 MG TABLET PO SCH ×2 (08:30→15:47)
[2016-06-06] MEDS: PANTOPRAZOLE 40 MG TABLET PO SCH (08:30)
[2016-06-06] MEDS: INSULIN LISPRO 100 UNIT/ML SUBCUT SCH ×4 (08:32→20:40)
--- NOTE | 2016-06-06 08:41 | Internal Med Progress Note ---
Assessment and Plan (1) hypertension Status: Chronic Assessment and plan: 66-year-old male admitted to acute care * Uncontrolled hypertension. His blood pressure medications have been changed. Will adjust * Chronic renal failure. Renal function is about the same. * Bilateral edema. Chronic Current Visit: Yes (2) Chronic kidney disease, stage IV (severe) Status: Acute Current Visit: Yes (3) peripheral edema Status: Chronic Current Visit: Yes (4) type 2 diabetes mellitus Status: Chronic Current Visit: Yes Internal Medicine - PN: Subj Interval history: He is feeling better. No chest pain or shortness of breath. No nausea or vomiting Exam (Progress Note) - Constitutional Vitals: Period Temp Pulse Resp BP Sys/Vazquez Pulse Ox Last 24 Hr 97.2 F-98.7 F 48-54 16-20 146-197/65-86 95-99 General appearance: over weight - Head Head exam: Present: normal inspection - Eye Eye exam: Present: other (Legally blind) - Neck Neck exam: Present: normal inspection - Respiratory Respiratory exam: Present: clear to auscultation bilaterally - Cardiovascular Cardiovascular exam: Present: regular rate and rhythm - Extremities Exam Extremities exam: Present: edema (2+) Results - Labs CBC & BMP: 06/06/16 03:59 06/06/16 03:59 Lab Results: I have reviewed the past 24 hour labs
--- NOTE | 2016-06-06 10:08 | Nephrology Progress Note ---
Nephrology - PN: Subj Interval history: Pt sitting on side of bed. Denies SOB/pain. Pt states he was admitted for high potassium and BLE edema. Creatinine up to 5.7 from 5.3 yesterday. K normal. Denies knowledge of high potassium containing foods. Exam (PN)-Nephrology - Vital Signs Vital signs: Period Temp Pulse Resp BP Sys/Vazquez Pulse Ox Last 24 Hr 97.2 F-98.7 F 48-54 16-20 146-197/65-86 95-99 - General Appearance General appearance: well-developed, well-nourished EENT: ATNC, PERRL, mucous membranes moist, hearing intact, vision intact Neck: no JVD, no carotid bruit Respiratory: no kyphosis, clear Cardiology: no murmurs, no rub, edema (tense, brawny to knees bilat) Gastrointestinal: normoactive bowel sounds, no tenderness Integumentary: no rash, warm and dry Neurologic: no focal deficit, no asterixis, alert and oriented x3 - Lab 06/06/16 03:59 06/06/16 03:59 Most recent lab results Calcium 7.3 MG/DL (8.5-10.1) L 06/06/16 03:59 Magnesium 2.2 MG/DL (1.8-2.4) 06/02/16 04:26 Assessment and Plan (1) CKD (chronic kidney disease) stage 5, GFR less than 15 ml/min Problem details: No uremic symptoms. No acute indication for renal replacement therapy at this time. Status: Acute Assessment and plan: Nutrition consult to provide handout of high potassium foods to avoid. Current Visit: Yes
[2016-06-06] MEDS: TAMSULOSIN 0.4 MG CAPSULE PO SCH (20:40)
[2016-06-07] MEDS: cloNIDine 0.1 MG TABLET PO PRN ×2 (01:17→07:35)
[2016-06-07] MEDS: SODIUM CHLORIDE 0.45% 1,000 ML IV SCH ×2 (01:17→09:56)
[2016-06-07 04:58] LABS: Basophils % 0.5 % (0.0-0.8); Eosinophils # 0.1 10*3/uL (0.0-0.87); Eosinophils % 1.1 % (0.00-10.9); Immature Granulocytes % 0.3 %; Immature Granulocytes Absolute 0.02 #; Lymphocytes # 0.8 10*3/uL (1.4-4.0); Mean Corpuscular HGB Conc 31.3 GM/DL (32-36); Mean Corpuscular Hemoglobin 25 PG (27-34); Mean Corpuscular Volume 78.8 FL (87-102); Mean Platelet Volume 11.3 FL (9.6-12.0); Monocytes # 0.6 10*3/uL (0.11-0.8); Neutrophils # 4.8 10*3/uL (1.4-7.4); Neutrophils % 76.1 % (38.7-73.9); Platelet Count 326 T/CUMM (130-400); Red Blood Count 4.06 MC/CUMM (3.8-5.5); Red Cell Distribution Width 14.3 % (9.3-17.3); White Blood Count 6.3 T/CUMM (4-12)
[2016-06-07 05:38] LABS: Calcium 7.6 MG/DL (8.5-10.1); Osmolality,Calculated 293.3 MOS/KG (273-304); Potassium 4.6 MMOL/L (3.5-5.1)
[2016-06-07] MEDS: INSULIN LISPRO 100 UNIT/ML SUBCUT SCH ×4 (08:05→20:38)
[2016-06-07] MEDS: PANTOPRAZOLE 40 MG TABLET PO SCH (09:22)
[2016-06-07] MEDS: DOCUSATE SODIUM 100 MG CAPSULE PO SCH ×2 (09:22→20:37)
[2016-06-07] MEDS: FUROSEMIDE 20 MG TABLET PO SCH (09:23)
[2016-06-07] MEDS: METOPROLOL TARTRATE 50 MG TABLET PO SCH (09:25)
[2016-06-07] MEDS: POLYETHYLENE GLYCOL POWDER 17 GM PACK PO SCH (10:02)
[2016-06-07] MEDS: FUROSEMIDE 40 MG/4 ML VIAL IV SCH ×2 (10:03→16:16)
--- NOTE | 2016-06-07 10:04 | Internal Med Progress Note ---
Assessment and Plan (1) hypertension Status: Chronic Assessment and plan: 66-year-old male admitted to acute care * Uncontrolled hypertension. His Procardia was increased. His blood pressure is still high. Dr. Carey has started him on IV Lasix. May have to increase his clonidine to 3 times a day. * Chronic renal failure. Renal function is about the same. * Bilateral edema. Chronic Current Visit: Yes (2) Chronic kidney disease, stage IV (severe) Status: Acute Current Visit: Yes (3) peripheral edema Status: Chronic Current Visit: Yes (4) type 2 diabetes mellitus Status: Chronic Current Visit: Yes Internal Medicine - PN: Subj Interval history: He denies any specific complaints. No headache or chest pain. Exam (Progress Note) - Constitutional Vitals: Period Temp Pulse Resp BP Sys/Vazquez Pulse Ox Last 24 Hr 97.8 F-99.3 F 50-72 16-20 141-218/61-95 96-99 Exam: GENERAL: Patient is in no acute distress. NECK: Neck is supple. CVS: There is no S3 present. Regular rate and rhythm. RESPIRATORY: Lungs are clear to auscultation. ABDOMEN: Soft and nontender. EXT: 2+ edema CLINICAL LEADER: Nonfocal Results - Labs CBC & BMP: 06/07/16 04:15 06/07/16 04:15 Lab Results: I have reviewed the past 24 hour labs
--- NOTE | 2016-06-07 12:45 | Nephrology Progress Note ---
Nephrology - PN: Subj Interval history: Pt sitting in chair on am rounds. Denies SOB/pain. Exam (PN)-Nephrology - Vital Signs Vital signs: Period Temp Pulse Resp BP Sys/Vazquez Pulse Ox Last 24 Hr 98.4 F-99.3 F 51-72 16-20 141-218/61-95 95-98 - General Appearance General appearance: well-developed, well-nourished EENT: ATNC, PERRL, mucous membranes moist, hearing intact, vision intact Neck: no JVD, no carotid bruit Respiratory: no kyphosis, clear Cardiology: no murmurs, no rub, edema (brawny, tense, unchanged) Gastrointestinal: normoactive bowel sounds, no tenderness Integumentary: no rash, warm and dry Neurologic: no focal deficit, no asterixis, alert and oriented x3 - Lab 06/07/16 04:15 06/07/16 04:15 Most recent lab results Calcium 7.6 MG/DL (8.5-10.1) L 06/07/16 04:15 Magnesium 2.2 MG/DL (1.8-2.4) 06/02/16 04:26 Assessment and Plan (1) CKD (chronic kidney disease) stage 5, GFR less than 15 ml/min Problem details: No uremic symptoms. No acute indication for renal replacement therapy at this time. Status: Acute Assessment and plan: Nutrition consult to provide handout of high potassium foods to avoid. Lasix changed from 20mg po bid to 80mg IVP bid. Current Visit: Yes
[2016-06-07] MEDS ORDERED: FUROSEMIDE 40 MG/4 ML VIAL IV SCH (16:00)
[2016-06-07] MEDS: TAMSULOSIN 0.4 MG CAPSULE PO SCH (20:38)
[2016-06-08] MEDS: cloNIDine 0.1 MG TABLET PO PRN (00:57)
[2016-06-08 06:38] LABS: Calcium 7.7 MG/DL (8.5-10.1); Osmolality,Calculated 295.3 MOS/KG (273-304)
[2016-06-08] MEDS: INSULIN LISPRO 100 UNIT/ML SUBCUT SCH ×3 (08:31→16:39)
--- NOTE | 2016-06-08 08:36 | Family Practice Progress Note ---
Family Practice - PN: Subj Interval history: Patient doing well, ambulating in room and brown. Patient states he needs to be discharged her from hospital. States she has things he must to take care of as well mentally he is declining remaining in hospital. They had tried IV Lasix over the weekend with no improvement in edema. Blood pressures have improved somewhat. Renal status is worse this a.m. with a creatinine of 6.1 which may be related to the IV Lasix. I have stopped the IV Lasix and go back to a lower dose of oral Lasix. Have also increased his clonidine to 3 times daily. We will monitor today and have Dr. Oliveira review. May discharge at this p.m. and continue controlling his blood pressure on an outpatient basis. His physical exam is otherwise stable Exam (Progress Note) - Constitutional Vitals: Period Temp Pulse Resp BP Sys/Vazquez Pulse Ox Last 24 Hr 97.4 F-99.7 F 51-58 18-20 176-206/54-88 95-97 Results - Labs CBC & BMP: 06/07/16 04:15 06/08/16 05:19 Assessment and Plan (1) renal insufficiency Status: Acute Assessment and plan: Last creatinine when seeing Dr. Oliveira was 3.6. It has almost doubled since that time. Current Visit: Yes (2) benign prostatic hypertrophy Status: Chronic Assessment and plan: Patient is having significant problems with frequency of urination and hesitancy.. May be urinary tract retention is causing worsening of his renal status. I have ordered Gonzalez catheter placed to check for residual. Also consult to nephrology ordered bilateral renal ultrasounds Current Visit: Yes (3) peripheral edema Status: Chronic Assessment and plan: Secondary to his ranal insufficiency Current Visit: Yes (4) anemia probably anemia of chronic diseas Status: Acute Assessment and plan: We will monitor closely. If continues to decline may need to transfuse Current Visit: Yes (5) hypertension Status: Chronic Assessment and plan: Procedure poorly controlled. Have modified medications Current Visit: Yes (6) type 2 diabetes mellitus Status: Chronic Assessment and plan: Has started sliding scale we'll monitor closely Current Visit: Yes
[2016-06-08] MEDS: DOCUSATE SODIUM 100 MG CAPSULE PO SCH ×2 (09:07→21:05)
[2016-06-08] MEDS: METOPROLOL TARTRATE 50 MG TABLET PO SCH (09:07)
[2016-06-08] MEDS: PANTOPRAZOLE 40 MG TABLET PO SCH (09:07)
[2016-06-08] MEDS: POLYETHYLENE GLYCOL POWDER 17 GM PACK PO SCH (09:07)
[2016-06-08] MEDS: FUROSEMIDE 40 MG/4 ML VIAL IV SCH (09:10)
--- NOTE | 2016-06-08 12:26 | Nephrology Progress Note ---
Nephrology - PN: Subj Interval history: He denies shortness of breath at rest. Blood pressure has been better controlled after recent changes. He is quite anxious to go home. Exam (PN)-Nephrology - Vital Signs Vital signs: Period Temp Pulse Resp BP Sys/Vazquez Pulse Ox Last 24 Hr 97.4 F-99.7 F 49-58 18-20 175-206/54-88 96-97 Exam: ENT: Normal Cardiovascular: Regular rate and rhythm. No murmur rub or gallop Lungs: Clear Extremities: 2+ edema - Lab 06/07/16 04:15 06/08/16 05:19 Most recent lab results Calcium 7.7 MG/DL (8.5-10.1) L 06/08/16 05:19 Magnesium 2.2 MG/DL (1.8-2.4) 06/02/16 04:26 Assessment and Plan (1) Chronic kidney disease, stage IV (severe) Status: Acute Assessment and plan: 66-year-old man admitted with: * Scrotal edema. He has bilateral hydrocele. * Chronic renal failure, stage IV. Creatinine is risen after he received IV diuretic this weekend. I agree with decreasing his dose. I discussed dialysis access with him. He is to 70 dialysis education nurse today. He has been encouraged to have a permanent access placed as soon as he chooses a modality. * Nephrotic syndrome * Diabetes mellitus * Hypertension. Improved control. He is not yet at goal. * Anemia. Current Visit: Yes (2) anemia probably anemia of chronic diseas Status: Acute Current Visit: Yes (3) benign prostatic hypertrophy Status: Chronic Current Visit: Yes (4) hypertension Status: Chronic Current Visit: Yes (5) type 2 diabetes mellitus Status: Chronic Current Visit: Yes (6) Proteinuria Status: Acute Current Visit: Yes
[2016-06-08] MEDS ORDERED: FUROSEMIDE 20 MG TABLET PO SCH (16:00)
[2016-06-08] MEDS: FUROSEMIDE 40 MG TABLET PO SCH (16:40)
[2016-06-08] MEDS: TAMSULOSIN 0.4 MG CAPSULE PO SCH (21:05)
[2016-06-09] MEDS: INSULIN LISPRO 100 UNIT/ML SUBCUT SCH ×3 (01:16→12:44)
[2016-06-09 06:33] LABS: Calcium 7.7 MG/DL (8.5-10.1); Osmolality,Calculated 291.5 MOS/KG (273-304)
--- NOTE | 2016-06-09 08:12 | Discharge Summary ---
Hospital Course - Hospital Course Hospital Course: This 66-year-old black male presents with a history of lower extremity edema as well as rapid swelling and tenderness of the scrotal sac over the last 3 days. The patient relates a problem with fluid balance and previous problems in this regard but has been taken off all diuretics due to his renal function. Associated with this has been an ever increasing decline in stream with difficulty genreating flow of late. The patient denies any history of prostate problems, CHF, orthopnea, PND, dyspnea on exertion, or chest pain. He does complain of dysuria, urgency, frequency, and hesitancy without any complaints of chills, fever, nausea, or vomiting. He currently appears in no acute distress. His creatinine has significantly elevated from his previous baseline. in view of the acute changes will admit further evaluation therapy. Hospital course-patient was admitted to hospital lab and x-ray studies obtained. Patient was seen in consultation by Dr. Malachi Oliveira. Patient's blood pressures remained significantly elevated and failed to respond to multiple medication. His creatinine initially improved slightly. After trying multiple combinations of medications she is blood pressures have improved somewhat. His creatinine remains significantly elevated and Dr. Oliveira has discussed placement of a dialysis catheter. Patient is considering that at time of discharge. In view of his prolonged hospitalization he wants to be discharged and return to office to discuss with Dr. Oliveira. He is stable at time of discharge with some persistent scrotal edema. He has hydroceles noted on ultrasound. I have discussed in detail with patient and advised the critical nature of taking medications as prescribed and proper follow-up. Patient states she understands and will comply. Will discharge to home care and have patient monitor blood pressures closely. Will have him call or return to the emergency room if condition worsens or new problems develop. Will arrange follow-up with Dr. Oliveira and with myself in the clinic. His creatinine on discharge is a 6.2 Diagnosis - Discharge Diagnosis (1) renal insufficiency Status: Acute (2) Severe refractory hypertension Status: Acute (3) peripheral edema Status: Chronic (4) benign prostatic hypertrophy Status: Chronic (5) anemia probably anemia of chronic diseas Status: Acute (6) type 2 diabetes mellitus Status: Chronic Discharge Plan - Discharge Data Disposition: Disch To Home/Self Care Condition at Discharge: Stable Discharge Diet: advance to your usual diet, diabetic diet Activity: resume usual activities as tolerated Weight Bearing at Discharge: full weight bearing Contact your physician if you experience:: fever over 101, Shortness of breath - Discharge Medications New Furosemide Tab [Lasix Tab] 20 mg PO BID DIURETIC #60 tablet Metoprolol Tartrate Tab [Lopressor Tab] 50 mg PO DAILY #30 tablet Tamsulosin [Flomax] 0.4 mg PO BEDTIME #30 capsule cloNIDine TAB [Catapres Tab] 0.3 mg PO TID #90 tablet hydrALAZINE TAB [Apresoline Tab] 100 mg PO TID #90 tablet NIFEdipine XL TAB [Procardia Xl] 90 mg PO DAILY #30 tablet Discontinued cloNIDine TAB [Catapres Tab] 0.1 mg PO DAILY amLODIPine [Norvasc] 10 mg PO DAILY - Follow Up or Referral Follow Up: Malachi Oliveira MD [Physician] - 1 Week Abiodun Ansari DO [Physician] - 2 Weeks - Forms/Instructions Exam - Constitutional Vitals: Period Temp Pulse Resp BP Sys/Vazquez Pulse Ox Last 24 Hr 96.0 F-98.3 F 45-56 16-20 152-200/67-88 96-98 General appearance: no acute distress - Head Head exam: Present: normal inspection - ENT ENT exam: Present: normal exam - Neck Neck exam: Present: normal inspection - Respiratory Respiratory exam: Present: clear to auscultation bilaterally - Cardiovascular Cardiovascular exam: Present: regular rate and rhythm - GI/Abdominal GI/Abdominal exam: Present: normal bowel sounds, soft, other (Some scrotal edema ) - Extremities Exam Extremities exam: Present: normal inspection - Back Exam Back exam: Present: normal inspection - Neurological Exam Neurological exam: Present: alert, oriented X3 - Psychiatric Psychiatric exam: Present: normal affect - Skin Skin exam: Present: normal color Discharge Results Procedures and tests throughout hospitalization: Pending Orders 06/03/16 Occult Blood, Stool Routine 06/03/16 18:36 Catecholamine Fract, Ur, 24Hr Routine Cortisol Free 24 Hr UR Routine Metanephrines, Fractionated,24 Routine Labs on day of discharge: Labs from last 24 hours 06/09/16 06/08/16 06/08/16 05:44 20:15 16:14 Sodium 139 Potassium 5.0 Chloride 107 Carbon Dioxide 19 L Anion Gap 18.0 H BUN 52 H Creatinine 6.20 H GFR Calculation 13 BUN/Creatinine Ratio 8.00 Glucose 118 H POC Glucose 165 H 140 H Calculated Osmolality 291.5 Calcium 7.7 L 06/08/16 06/08/16 11:40 07:50 Sodium Potassium Chloride Carbon Dioxide Anion Gap BUN Creatinine GFR Calculation BUN/Creatinine Ratio Glucose POC Glucose 147 H 150 H Calculated Osmolality Calcium DS: Provider Date of admission: 06/01/16 16:39 Primary care physician: . No PCP Attending physician on admission: Abiodun Ansari DO Consults: 06/01/16 16:40 Consult to Physician [CONS] Routine Comment: Consulting Provider: Malachi Oliveira When should Consulting Provider be notified: Now Consult to Specialist Group: Nephrology When should Consulting Provider be notified: Now Person Notified: DAX Date Notified: 06/02/16 Time Notified: 08:50 06/07/16 09:57 Consult to Dietitian [CONS] Routine Reason for Dietitian: Diet Instruction Consult Comment: potassium high on admission Discharging clinician: Abiodun Ansari DO
[2016-06-09] MEDS: FUROSEMIDE 40 MG TABLET PO SCH (08:28)
[2016-06-09] MEDS: METOPROLOL TARTRATE 50 MG TABLET PO SCH (08:29)
[2016-06-09] MEDS: PANTOPRAZOLE 40 MG TABLET PO SCH (08:30)
[2016-06-09] MEDS: DOCUSATE SODIUM 100 MG CAPSULE PO SCH (08:30)
[2016-06-09] MEDS: POLYETHYLENE GLYCOL POWDER 17 GM PACK PO SCH (08:34)
[2016-06-09 12:06] LABS: CATU Collection Duration 24 h; CATU Dopamine Frac 73 mcg/24 h (65-400); CATU Epinephrine Frac <1.3 mcg/24 h (<21); CATU Norepinephrine Frac 1.3 mcg/24 h (15-80); CATU Specimen Volume 2600 mL
[2016-06-09 12:30] VITALS: BP 176/77
[2016-06-09 16:31] LABS: Normetanephrine, U 213 mcg/24 h; Total Metanephrines, U 286 mcg/24 h; Urine Volume 2600 mL
[2016-06-09 18:31] LABS: Urine Volume 2600 mL
--- NOTE | 2016-06-09 23:46 | Nephrology Progress Note ---
Nephrology - PN: Subj Interval history: He denies shortness of breath or GI symptoms. Exam (PN)-Nephrology - Vital Signs Vital signs: Period Temp Pulse Resp BP Sys/Vazquez Pulse Ox Last 24 Hr 97.3 F-98.3 F 45-56 16-20 152-179/67-78 94-98 Exam: ENT: Normal Cardiovascular: Regular rate and rhythm. No murmur rub or gallop Lungs: Clear Extremities: 1-2+ edema - Lab 06/07/16 04:15 06/09/16 05:44 Most recent lab results Calcium 7.7 MG/DL (8.5-10.1) L 06/09/16 05:44 Magnesium 2.2 MG/DL (1.8-2.4) 06/02/16 04:26 Assessment and Plan (1) Chronic kidney disease, stage IV (severe) Status: Acute Assessment and plan: 66-year-old man admitted with: * Scrotal edema. He has bilateral hydrocele. * Chronic renal failure, stage IV. He has spoken with dialysis educator nurse. He is considering peritoneal versus hemodialysis. He will be followed up as an outpatient * Nephrotic syndrome * Diabetes mellitus * Hypertension. Improved control. * Anemia. (2) anemia probably anemia of chronic diseas Status: Acute (3) benign prostatic hypertrophy Status: Chronic (4) hypertension Status: Chronic (5) type 2 diabetes mellitus Status: Chronic (6) Proteinuria Status: Acute Specialty Discharge - Follow Up or Referrals Follow up with: Malachi Oliveira MD [Physician] - 06/16/16 2:00 pm (06/16/16 at 2:00pm. bring all current medication to appointment) Abiodun Ansari DO [Physician] - 06/23/16 9:45 am (06/23/16 at 9:45am)
== END 2016-06-09 13:00 | disposition home or self-care (01) | DRG 729 ==
LOC: N.ED 12:27 → N.EDINP 16:39 → N.TELES 17:10
PROVIDERS: ADMIT Family Medicine; ATTEND Family Medicine

== ENCOUNTER 2016-10-27 12:40 | Inpatient (IN) ==
[~2016-10-27 12:40] MED LIST: ONDANSETRON 4 MG/2 ML VIAL IV PRN
[2016-10-27 14:17] LABS: Basophils % 0.5 % (0.0-0.8); Eosinophils # 0.1 10*3/uL (0.0-0.87); Eosinophils % 1.4 % (0.00-10.9); Hematocrit 27.4 VOL% (42.0-52.0); Hemoglobin 8.9 GM/DL (14.0-18.0); Immature Granulocytes % 0.3 %; Immature Granulocytes Absolute 0.02 #; Lymphocytes # 0.8 10*3/uL (1.4-4.0); Lymphocytes % 13.5 % (21.2-54.2); Mean Corpuscular HGB Conc 32.5 GM/DL (32-36); Mean Corpuscular Hemoglobin 26 PG (27-34); Mean Corpuscular Volume 79.4 FL (87-102); Mean Platelet Volume 10.4 FL (9.6-12.0); Monocytes # 0.5 10*3/uL (0.11-0.8); Monocytes % 8.1 % (1.7-12.7); Neutrophils # 4.4 10*3/uL (1.4-7.4); Neutrophils % 76.2 % (38.7-73.9); Platelet Count 206 T/CUMM (130-400); Red Blood Count 3.45 MC/CUMM (3.8-5.5); Red Cell Distribution Width 16.8 % (9.3-17.3); White Blood Count 5.8 T/CUMM (4-12)
[2016-10-27 14:44] LABS: Alanine Aminotransferase 21 U/L (16-61); Albumin 2.6 G/DL (3.4-5.0); Alkaline Phosphatase 98 U/L (45-117); Aspartate Amino Transferase 15 U/L (0-37); Bilirubin,Total < 0.39 MG/DL (0.2-1.0); Blood Urea Nitrogen 87 MG/DL (7-18); Calcium 8.2 MG/DL (8.5-10.1); Glucose 144 MG/DL (74-106); Magnesium 2.2 MG/DL (1.8-2.4); Osmolality,Calculated 306.5 MOS/KG (273-304); Sodium 139 MMOL/L (136-145)
--- NOTE | 2016-10-27 14:49 | Event Note ---
tunnelled HD cath requestede. Proc/risks DW pt in detail including ptx,bleeding, blood clots,injury to great vessels,etc. wishes to proceed
[2016-10-27] MEDS ORDERED: BUPIVACAINE 0.25% /EPI 10 ML VIAL ONE (15:20)
[2016-10-27] MEDS ORDERED: HEPARIN 5,000 UNIT/1 ML VIAL ONE (15:20)
[2016-10-27] MEDS ORDERED: LIDOCAINE 1%/EPI INJ 20 ML VIAL ONE (15:21)
[2016-10-27] MEDS ORDERED: METOCLOPRAMIDE 10 MG/2 ML VIAL IV ONE (15:26)
[2016-10-27 15:46] LABS: Hepatitis A Ab IgM Quant 0.11 Index; Hepatitis A Ab IgM Result Negative (Negative); Hepatitis B Core IgM Quant 0.14 Index; Hepatitis B Core IgM Result Negative (Negative); Hepatitis B Surface Ag Quant < 0.10 Index; Hepatitis B Surface Ag Result Negative (Negative); Hepatitis C Virus Ab Quant 0.15 Index; Hepatitis C Virus Ab Result Negative (Negative)
[2016-10-27] MEDS ORDERED: PROPOFOL 200 MG/20 ML VIAL IV ONE (16:44)
[2016-10-27] MEDS ORDERED: GLYCOPYRROLATE 0.4 MG/2 ML VIAL ONE (16:45)
[2016-10-27] MEDS ORDERED: MIDAZOLAM 2 MG/2 ML VIAL ONE (16:45)
[2016-10-27] MEDS ORDERED: SODIUM CHLORIDE 0.9% 250 ML IV ONE (16:45)
[2016-10-27] MEDS ORDERED: fentaNYL 100 MCG/2 ML VIAL ONE (16:45)
--- NOTE | 2016-10-27 16:49 | Anesthesia Post-Op ---
Anesthesia Post OP - Post Ansesthetic Evaluation Patient seen in post op: Yes Resp: within normal limits CV: within normal limits Mental: within normal limits Temp: within normal limits [id number]: within normal limits Nausea and Vomiting: within normal limits Pain: within normal limits
--- NOTE | 2016-10-27 17:14 | Operative Note ---
Date of procedure: 10/27/16 Pre-op diagnosis: Chronic renal failure Post-op diagnosis: same Procedure: Tunneled hemodialysis catheter right internal jugular vein under ultrasound and fluoroscopic guidance Findings and technique: After informed consent was obtained the patient was brought the operating room placed in supine position. After IV sedation was administered the patient's neck and chest was prepped and draped in usual sterile fashion. Local anesthesia was infiltrated with a sterile ultrasound probe on the neck the internal jugular vein was easily identified and accessed with a single stick. Guidewire was advanced without resistance and a small incision made at the guidewire puncture site. A separate stab incision was made beneath the right clavicle and the catheter tunnel between the 2 incisions. Dilator was passed over the guidewire without resistance and catheter introduced in position under fluoroscopy with the tip in the distal superior vena cava under fluoroscopy. The catheter was easily accessed aspirated and flushed and sutured into place. Incision the neck was closed interrupted 3-0 nylon suture. No evidence of pneumothorax was noted. He appeared to tolerate the procedure well and had no apparent complications. Anesthesia: MAC, local Surgeon / Physician: Juma Garcia III. Estimated blood loss: none Specimens: none sent Condition: stable Disposition: PACU Results - Labs CBC & BMP: 10/27/16 13:58 10/27/16 13:58 Discharge Plan - Discharge Medications No Action Tamsulosin [Flomax] 0.4 mg PO BEDTIME #30 capsule Furosemide Tab [Lasix Tab] 40 mg PO BID DIURETIC Metoprolol Tartrate Tab [Lopressor Tab] 100 mg PO DAILY Levothyroxine Tab [Synthroid Tab] 75 mcg PO DAILY@0700 NIFEdipine XL TAB [Procardia Xl] 90 mg PO DAILY #30 tablet cloNIDine TAB [Catapres Tab] 0.1 mg PO TID - Follow Up or Referral - Forms/Instructions
--- NOTE | 2016-10-27 18:58 | Family Practice History&Phys ---
Assessment and Plan (1) Chronic kidney disease, stage IV (severe) Status: Acute Assessment and plan: Patient has had progressive renal insufficiency for a number of months. His condition has significantly deteriorated and he is being admitted for placement of hemodialysis catheter and dialysis. We'll plan to correct other lab abnormalities Current Visit: No (2) anemia of chronic disease Status: Chronic Assessment and plan: Patient has anemia secondary to chronic disease and renal insufficiency Current Visit: Yes (3) type 2 diabetes mellitus Status: Chronic Assessment and plan: We'll start on sliding scale and monitor closely Current Visit: No (4) hyperkalemia Status: Acute Assessment and plan: We'll start on Kayexalate and Dr. Oliveira will during dialysis Current Visit: Yes (5) hypertension Status: Chronic Assessment and plan: Poorly controlled on today's evaluation we'll monitor in hospital and modify medications as needed Current Visit: No (6) Hypothyroidism Status: Chronic Assessment and plan: Stable on present medication Current Visit: Yes (7) benign prostatic hypertrophy Status: Chronic Assessment and plan: Stable with present medication Current Visit: No History of Present Illness Chief complaint: renal failure and weakness History of present illness: Mr. Bazzi is a 66 year old male Patient is 66-year-old black male well known to me who was seen in clinic for routine follow-up visit. The patient has known renal insufficiency. He was seen yesterday by Dr. Malachi Oliveira and his creatinine was 11.3 with a potassium of 6.1 . He Was also noted to have hemoglobin of 7.6. Dr. Oliveira strongly recommended that patient be admitted for placement of catheter and started on renal dialysis. Patient refused at that time. Patient has been unwilling to commit to dialysis. He's had progressive renal decline. I saw the patient today and spent significant time with patient and and had a very komal conversation. Advised patient and that he cannot survive without having dialysis performed. I spent significant time and advised patient that he will if he does not immediately commit to some form of dialysis and treatment. His plan was to put this off until sometime in the future. I advised that he has no future unless she starts to dialysis immediately. Dr. Oliveira and started him on Kayexalate yesterday but the patient had not started the medication. I again expressed to patient and that he will if he does not immediately agree to treatment and become compliant. He recently had a prolonged admission for very poorly controlled blood pressures. He stated that his pressures were adequately controlled at home but his blood pressure is 190/90 in the office. He finally committed to me that he would start dialysis and he would be compliant with medications. I talked with Dr. Oliveira and we plan to admit and he will have surgery place a dialysis catheter as soon as possible. Dr. Oliveira plans to begin dialysis is in his access available. In view of his history we will admit and begin treatment immediately Home Medications Medication Instructions Recorded Confirmed Type NIFEdipine XL TAB [Procardia Xl] 90 mg PO DAILY #30 tablet 06/09/16 10/27/16 Rx Tamsulosin [Flomax] 0.4 mg PO BEDTIME #30 capsule 06/09/16 10/27/16 Rx Furosemide Tab [Lasix Tab] 40 mg PO BID DIURETIC 10/27/16 10/27/16 History Levothyroxine Tab [Synthroid Tab] 75 mcg PO DAILY@0700 10/27/16 10/27/16 History Metoprolol Tartrate Tab [Lopressor 100 mg PO DAILY 10/27/16 10/27/16 History Tab] cloNIDine TAB [Catapres Tab] 0.1 mg PO TID 10/27/16 10/27/16 History Allergies Allergy/AdvReac Type Severity Reaction Status Date / Time No Known Allergies Allergy Unverified 06/01/16 12:45 Medical,Surgical,& Family Hx - Medical History Cardio: History of: Hypertension Endocrine: History of: Diabetes Mellitus (NIDDM), Thyroid Disorder Renal: History of: Renal Failure, Renal Problems - Surgical History HEENT Surgeries: Surgical HX of: Eye Surgery (bilateral cataracts and detached retina) - Family History Family History: Reports;: Family Diabetes, Family Hypertension, Family Stroke - Social History Smoking Status: Never smoker Frequency of Alcohol Use: None Type of Drug Use: None Marital Status: Lives With:: Spouse Functional capacity: independent ambulation Exam - Constitutional Vitals: Period Temp Pulse Resp BP Sys/Vazquez Pulse Ox Last 24 Hr 97.4 F-97.8 F 45-55 16-18 147-194/61-91 96-100 General appearance: mild distress - Head Head exam: Present: normal inspection - Eye Eye exam: Present: other (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) - ENT ENT exam: Present: normal exam - Neck Neck exam: Present: normal inspection - Respiratory Respiratory exam: Present: clear to auscultation bilaterally - Cardiovascular Cardiovascular exam: Present: irregular rhythm - GI/Abdominal GI/Abdominal exam: Present: normal bowel sounds, soft - Extremities Exam Extremities exam: Present: normal inspection - Back Exam Back exam: Present: normal inspection - Neurological Exam Neurological exam: Present: alert, oriented X3 - Psychiatric Psychiatric exam: Present: normal affect - Skin Skin exam: Present: normal color Results - Labs CBC & BMP: 10/27/16 13:58 10/27/16 13:58 Quality Measures - VTE Contraindication to Pharmacological VTE Prophylaxis: High Risk of Bleeding
--- NOTE | 2016-10-27 19:41 | XRay Report ---
XR chest 1V portable Indication: Dialysis catheter placement Comparison: Chest x-ray dated June 01, 2016 Technique: Single frontal view of the chest. Findings: Right-sided central venous catheter tip projects over the mid SVC. Continued moderate cardiomegaly. No komal pulmonary edema. Visualized osseous and surrounding soft tissue structures appear grossly unchanged. IMPRESSION: As above. PROCEDURE INTERPRETED AT [facility] DEPARTMENT OF RADIOLOGY Final Report Signed by: Dr Riley Lowe
[2016-10-27] MEDS ORDERED: HEPARIN 10,000 UNIT/10 ML VIAL IV SCH (21:00)
[2016-10-27] MEDS ORDERED: TAMSULOSIN 0.4 MG CAPSULE PO SCH (21:00)
[2016-10-27] MEDS ORDERED: cloNIDine 0.1 MG TABLET PO SCH (21:00)
[2016-10-27] MEDS: SODIUM POLYSTYRENE SULFATE 15 GM/60 ML BOTTLE PO SCH (21:30)
[2016-10-27] MEDS: DOCUSATE SODIUM 100 MG CAPSULE PO SCH (21:57)
[2016-10-27] MEDS: INSULIN LISPRO 100 UNIT/ML SUBCUT SCH (22:04)
--- NOTE | 2016-10-27 22:39 | Nephrology Consult Note ---
History of Present Illness Chief complaint: Renal failure History of present illness: Mr. 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 Renal function has declined significantly over the past several months. He has declined to have an access placed. I strongly advised him to begin dialysis yesterday. After seeing Dr. Ansari today, he agreed to begin dialysis. He has had uremic symptoms of fatigue and anorexia. He was hyperkalemic and has significant lower extremity edema as well. Home Medications Medication Instructions Recorded Confirmed Type NIFEdipine XL TAB [Procardia Xl] 90 mg PO DAILY #30 tablet 06/09/16 10/27/16 Rx Tamsulosin [Flomax] 0.4 mg PO BEDTIME #30 capsule 06/09/16 10/27/16 Rx Furosemide Tab [Lasix Tab] 40 mg PO BID DIURETIC 10/27/16 10/27/16 History Levothyroxine Tab [Synthroid Tab] 75 mcg PO DAILY@0700 10/27/16 10/27/16 History Metoprolol Tartrate Tab [Lopressor 100 mg PO DAILY 10/27/16 10/27/16 History Tab] cloNIDine TAB [Catapres Tab] 0.1 mg PO TID 10/27/16 10/27/16 History Allergies Allergy/AdvReac Type Severity Reaction Status Date / Time No Known Allergies Allergy Unverified 06/01/16 12:45 Medical,Surgical,& Family Hx - Medical History Cardio: History of: Hypertension Endocrine: History of: Diabetes Mellitus (NIDDM), Thyroid Disorder Renal: History of: Renal Failure, Renal Problems - Surgical History HEENT Surgeries: Surgical HX of: Eye Surgery (bilateral cataracts and detached retina) - Family History Family History: Reports;: Family Diabetes, Family Hypertension, Family Stroke - Social History Smoking Status: Never smoker Frequency of Alcohol Use: None Type of Drug Use: None Review of Systems 12 point system: reviewed and no additional remarkable complaints except as stated Exam - Vital Signs Vital signs: Period Temp Pulse Resp BP Sys/Vazquez Pulse Ox Last 24 Hr 97.4 F-98.0 F 45-57 16-20 147-199/61-91 96-100 Exam: Gen.: Alert and oriented x3. ENT: Pupils equal round reactive to light. EOMs intact. Mucous membranes moist. Neck: Supple. No JVD or bruit. Cardiovascular: Regular rate and rhythm. No murmur rub or gallop Lungs: Clear Abdomen: Soft. Nontender. Positive bowel sounds. No organomegaly Extremities: 2-3+ edema Results - Labs CBC & BMP: 10/27/16 13:58 10/27/16 13:58 Assessment and Plan (1) Chronic kidney disease, stage V Status: Acute Assessment and plan: 66-year-old man admitted with: * CRF stage V. He has uremic symptoms and hyperkalemia. He also has significant edema. He has agreed to begin dialysis * Hyperkalemia * Diabetes mellitus * Hypertension * Anemia Current Visit: Yes (2) hyperkalemia Status: Acute Current Visit: Yes (3) Hypothyroidism Status: Chronic Current Visit: Yes (4) anemia of chronic disease Status: Chronic Current Visit: Yes (5) Proteinuria Status: Acute Current Visit: No (6) hypertension Status: Chronic Current Visit: No (7) type 2 diabetes mellitus Status: Chronic Current Visit: No
[2016-10-27 22:41] LABS: Apearance,Urine Slightly Hazy (Clear); Bacteria,Urine Occasional /HPF (Few); Bilirubin,Urine Negative (Negative); Blood, Urine Small mg/dL (Negative); Glucose,Urine (UA) 50 mg/dL (Negative); Granular Casts,Urine 4 /LPF (0-1); Ketones,Urine Negative (Negative); Mucus,Urine Occasional /LPF (Occasional); Nitrite,Urine Negative (Negative); Protein,Urine >=500 MG/DL; RBC,Urine 4 /HPF (0-4); Renal Epithelial Cells,Urine Occasional /HPF (<1); Squamous Epithelial Cell,Urine Occasional /HPF (0-10); Urine Color Yellow (Yellow); Urine Urobilinogen < 2.0 EU/DL (0.2-1.0); WBC,Urine 3 /HPF (0-6)
--- NOTE | 2016-10-27 22:43 | Dialysis Note ---
Dialysis Note - Dialysis Note He was seen during dialysis. His tunneled catheter is working well. Blood pressure is reasonably well-controlled. Dialysis will be repeated tomorrow. Outpatient schedule will be set up
[2016-10-28 02:19] LABS: Basophils % 0.2 % (0.0-0.8); Eosinophils % 0.2 % (0.00-10.9); Hematocrit 26.7 VOL% (42.0-52.0); Hemoglobin 8.4 GM/DL (14.0-18.0); Immature Granulocytes % 0.2 %; Immature Granulocytes Absolute 0.01 #; Lymphocytes # 0.6 10*3/uL (1.4-4.0); Lymphocytes % 12.2 % (21.2-54.2); Mean Corpuscular HGB Conc 31.5 GM/DL (32-36); Mean Corpuscular Hemoglobin 25 PG (27-34); Mean Corpuscular Volume 78.5 FL (87-102); Mean Platelet Volume 11.5 FL (9.6-12.0); Monocytes # 0.4 10*3/uL (0.11-0.8); Monocytes % 9.1 % (1.7-12.7); Neutrophils # 3.5 10*3/uL (1.4-7.4); Neutrophils % 78.1 % (38.7-73.9); Platelet Count 190 T/CUMM (130-400); Red Cell Distribution Width 16.4 % (9.3-17.3); White Blood Count 4.5 T/CUMM (4-12)
[2016-10-28] MEDS: SODIUM POLYSTYRENE SULFATE 15 GM/60 ML BOTTLE PO SCH ×2 (02:23→08:36)
[2016-10-28 02:43] LABS: Total Cells Counted 0
[2016-10-28 02:48] LABS: Risk Ratio 4.07; VLDL CHOLESTEROL 18.2 MG/DL
[2016-10-28 02:58] LABS: Alanine Aminotransferase 15 U/L (16-61); Albumin 2.2 G/DL (3.4-5.0); Alkaline Phosphatase 87 U/L (45-117); Aspartate Amino Transferase 12 U/L (0-37); Bilirubin,Total < 0.39 MG/DL (0.2-1.0); Blood Urea Nitrogen 62 MG/DL (7-18); Calcium 7.7 MG/DL (8.5-10.1); Free T4 (Free Thyroxine) 0.96 NG/DL (0.76-1.46); Glucose 109 MG/DL (74-106); Magnesium 1.9 MG/DL (1.8-2.4); Osmolality,Calculated 295.5 MOS/KG (273-304); Sodium 139 MMOL/L (136-145); Total Protein 6.1 G/DL (6.4-8.3)
[2016-10-28] MEDS ORDERED: cloNIDine 0.1 MG TABLET PO ONE ×2 (03:13→05:14)
[2016-10-28] MEDS ORDERED: LEVOTHYROXINE 75 MCG TABLET PO SCH (07:00)
[2016-10-28] MEDS: cloNIDine 0.1 MG TABLET PO SCH ×2 (08:43→15:48)
[2016-10-28] MEDS: FUROSEMIDE 40 MG TABLET PO SCH ×2 (08:43→15:48)
[2016-10-28] MEDS: DOCUSATE SODIUM 100 MG CAPSULE PO SCH (08:43)
[2016-10-28] MEDS: INSULIN LISPRO 100 UNIT/ML SUBCUT SCH ×3 (08:46→16:04)
[2016-10-28] MEDS ORDERED: METOPROLOL TARTRATE 100 MG TABLET PO SCH (09:00)
[2016-10-28] MEDS ORDERED: PANTOPRAZOLE 40 MG TABLET PO SCH (09:00)
[2016-10-28] MEDS ORDERED: SKIN HEALING OINT (AQUAPHOR) 50 GM TUBE TOP PRN (14:33)
--- NOTE | 2016-10-28 17:32 | Discharge Summary ---
Hospital Course - Hospital Course Hospital Course: Chief complaint: renal failure and weakness History of present illness: Mr. Bazzi is a 66 year old male Patient is 66-year-old black male well known to me who was seen in clinic for routine follow-up visit. The patient has known renal insufficiency. He was seen yesterday by Dr. Malachi Oliveira and his creatinine was 11.3 with a potassium of 6.1 . He Was also noted to have hemoglobin of 7.6. Dr. Oliveira strongly recommended that patient be admitted for placement of catheter and started on renal dialysis. Patient refused at that time. Patient has been unwilling to commit to dialysis. He's had progressive renal decline. I saw the patient today and spent significant time with patient and and had a very komal conversation. Advised patient and that he cannot survive without having dialysis performed. I spent significant time and advised patient that he will if he does not immediately commit to some form of dialysis and treatment. His plan was to put this off until sometime in the future. I advised that he has no future unless she starts to dialysis immediately. Dr. Oliveira and started him on Kayexalate yesterday but the patient had not started the medication. I again expressed to patient and that he will if he does not immediately agree to treatment and become compliant. He recently had a prolonged admission for very poorly controlled blood pressures. He stated that his pressures were adequately controlled at home but his blood pressure is 190/90 in the office. He finally committed to me that he would start dialysis and he would be compliant with medications. I talked with Dr. Oliveira and we plan to admit and he will have surgery place a dialysis catheter as soon as possible. Dr. Oliveira plans to begin dialysis is in his access available. In view of his history we will admit and begin treatment immediately DISCHARGE SUMMARY-patient was admitted to hospital lab and x-ray studies again. Patient was seen in consultation for Dr. Malachi Oliveira. Dr. Oliveira agreed with the need for immediate dialysis. He consult to Dr. Garcia took patient to surgery and placed a venous access so that dialysis could be performed. Patient was subsequently underwent renal dialysis center. Patient had an excellent response and felt much better this a.m. Dr. Oliveira plans to repeat the dialysis today and then make arrangements for patient to receive outpatient renal dialysis. Patient will be scheduled for permanent placement of venous access in the near future. Patient was stable at time of discharge and labs are much improved. His blood pressures have been elevated throughout admission. Patient relates that he's been taking medications as prescribed and stated that his home readings are all under good control. We have had significant difficulty controlling his hypertension and I made further adjustments to his medications . We have set up appropriate to appointments for renal dialysis and patient is stable at time of discharge. Discharged to home care and have patient call or return to the emergency room condition worsen or new problems develop. I'll otherwise plan to recheck in the office in 2 weeks. Diagnosis - Discharge Diagnosis (1) Chronic kidney disease, stage IV (severe) Status: Acute (2) hyperkalemia Status: Acute (3) anemia of chronic disease Status: Chronic (4) type 2 diabetes mellitus Status: Chronic (5) hypertension Status: Chronic (6) Hypothyroidism Status: Chronic (7) benign prostatic hypertrophy Status: Chronic Specialty Discharge - Follow Up or Referrals Follow up with: Malachi Oliveira MD [Physician] - (Keep appointment for dialysis as set up by nursing staff) Abiodun Ansari DO [Physician] - 2 Weeks Discharge Plan - Discharge Data Disposition: Disch To Home/Self Care Condition at Discharge: Stable Discharge Diet: diabetic diet Activity: resume usual activities as tolerated Hygiene: no restrictions Weight Bearing at Discharge: full weight bearing Contact your physician if you experience:: fever over 101, Difficulty voiding, Shortness of breath - Discharge Medications New Skin Healing Oint (Aquaphor) [Aquaphor] 1 applic TOP PRN PRN #60 applic PRN Reason: Dry Skin Levothyroxine Tab [Synthroid Tab] 100 mcg PO DAILY@0700 #30 tablet cloNIDine TAB [Catapres Tab] 0.3 mg PO TID #90 tablet hydrALAZINE TAB [Apresoline Tab] 50 mg PO BID #60 tablet Continue Tamsulosin [Flomax] 0.4 mg PO BEDTIME #30 capsule Furosemide Tab [Lasix Tab] 40 mg PO BID DIURETIC Metoprolol Tartrate Tab [Lopressor Tab] 100 mg PO DAILY Levothyroxine Tab [Synthroid Tab] 75 mcg PO DAILY@0700 NIFEdipine XL TAB [Procardia Xl] 90 mg PO DAILY #30 tablet Discontinued cloNIDine TAB [Catapres Tab] 0.1 mg PO TID - Follow Up or Referral Follow Up: Malachi Oliveira MD [Physician] - (Keep appointment for dialysis as set up by nursing staff) Abiodun Ansari DO [Physician] - 2 Weeks - Forms/Instructions Exam - Constitutional Vitals: Period Temp Pulse Resp BP Sys/Vazquez Pulse Ox Last 24 Hr 98.0 F-100.2 F 48-73 20-20 153-220/70-86 95-100 General appearance: no acute distress - Head Head exam: Present: normal inspection - Eye Eye exam: Present: other (patient is partially blind bilaterally) - ENT ENT exam: Present: normal exam - Neck Neck exam: Present: normal inspection - Respiratory Respiratory exam: Present: clear to auscultation bilaterally - Cardiovascular Cardiovascular exam: Present: regular rate and rhythm - GI/Abdominal GI/Abdominal exam: Present: normal bowel sounds, soft - Extremities Exam Extremities exam: Present: normal inspection - Back Exam Back exam: Present: normal inspection - Neurological Exam Neurological exam: Present: alert, oriented X3 - Psychiatric Psychiatric exam: Present: normal affect - Skin Skin exam: Present: normal color Discharge Results Procedures and tests throughout hospitalization: Pending Orders 10/27/16 Urine Culture Stat 10/27/16 13:57 Blood Culture Stat 10/29/16 04:00 Comp Blood Count Auto Diff IN AM Labs on day of discharge: Labs from last 24 hours 10/28/16 10/28/16 10/28/16 15:43 11:59 10:19 WBC RBC Hgb Hct MCV MCH MCHC RDW Plt Count MPV Neut % (Auto) Lymph % (Auto) [place] % (Auto) Eos % (Auto) Baso % (Auto) Neut # (Auto) Lymph # (Auto) [place] # (Auto) Eos # (Auto) Baso # (Auto) Total Counted Immature Gran % Nucleated RBC % Immature Gran # Nucleated RBCs # Sodium Potassium Chloride Carbon Dioxide Anion Gap BUN Creatinine GFR Calculation BUN/Creatinine Ratio Glucose POC Glucose 165 H 144 H 140 H Hemoglobin A1c Calculated Osmolality Calcium Magnesium Total Bilirubin AST ALT Alkaline Phosphatase Total Protein Albumin Globulin Albumin/Globulin Ratio Triglycerides Cholesterol LDL Cholesterol VLDL Cholesterol HDL Cholesterol Heart Disease Risk Ratio Free T4 TSH 3rd Generation Urine Color Urine Appearance Urine pH Ur Specific [place] Urine Protein Urine Glucose (UA) Urine Ketones Urine Blood Urine Nitrate Urine Bilirubin Urine Urobilinogen Urine Leukocytes Urine RBC Urine WBC Ur Squamous Epith Cells Ur Renal Epithelial Cell Urine Bacteria Granular Casts Urine Mucus Ur Culture Indicated? 10/28/16 10/28/16 10/28/16 08:03 01:25 01:25 WBC RBC Hgb Hct MCV MCH MCHC RDW Plt Count MPV Neut % (Auto) Lymph % (Auto) [place] % (Auto) Eos % (Auto) Baso % (Auto) Neut # (Auto) Lymph # (Auto) [place] # (Auto) Eos # (Auto) Baso # (Auto) Total Counted Immature Gran % Nucleated RBC % Immature Gran # Nucleated RBCs # Sodium Potassium Chloride Carbon Dioxide Anion Gap BUN Creatinine GFR Calculation BUN/Creatinine Ratio Glucose POC Glucose 69 L Hemoglobin A1c 6.6 H Calculated Osmolality Calcium Magnesium Total Bilirubin AST ALT Alkaline Phosphatase Total Protein Albumin Globulin Albumin/Globulin Ratio Triglycerides 91 Cholesterol 183 LDL Cholesterol 122.0 VLDL Cholesterol 18.2 HDL Cholesterol 45 Heart Disease Risk Ratio 4.07 Free T4 TSH 3rd Generation Urine Color Urine Appearance Urine pH Ur Specific [place] Urine Protein Urine Glucose (UA) Urine Ketones Urine Blood Urine Nitrate Urine Bilirubin Urine Urobilinogen Urine Leukocytes Urine RBC Urine WBC Ur Squamous Epith Cells Ur Renal Epithelial Cell Urine Bacteria Granular Casts Urine Mucus Ur Culture Indicated? 10/28/16 10/28/16 10/27/16 01:25 01:25 22:05 WBC 4.5 RBC 3.40 L Hgb 8.4 L Hct 26.7 L MCV 78.5 L MCH 25 L MCHC 31.5 L RDW 16.4 Plt Count 190 MPV 11.5 Neut % (Auto) 78.1 H Lymph % (Auto) 12.2 L [place] % (Auto) 9.1 Eos % (Auto) 0.2 Baso % (Auto) 0.2 Neut # (Auto) 3.5 Lymph # (Auto) 0.6 L [place] # (Auto) 0.4 Eos # (Auto) 0.0 Baso # (Auto) 0.0 Total Counted 0 Immature Gran % 0.2 Nucleated RBC % 0.0 Immature Gran # 0.01 Nucleated RBCs # 0.00 Sodium 139 Potassium 5.0 Chloride 108 H Carbon Dioxide 21 Anion Gap 15.0 BUN 62 H D Creatinine 8.50 H GFR Calculation 8 BUN/Creatinine Ratio 7.00 Glucose 109 H POC Glucose 131 H Hemoglobin A1c Calculated Osmolality 295.5 Calcium 7.7 L Magnesium 1.9 Total Bilirubin < 0.39 AST 12 ALT 15 L Alkaline Phosphatase 87 Total Protein 6.1 L Albumin 2.2 L Globulin 3.9 H Albumin/Globulin Ratio 0.5 L Triglycerides Cholesterol LDL Cholesterol VLDL Cholesterol HDL Cholesterol Heart Disease Risk Ratio Free T4 0.96 TSH 3rd Generation 11.900 H Urine Color Urine Appearance Urine pH Ur Specific [place] Urine Protein Urine Glucose (UA) Urine Ketones Urine Blood Urine Nitrate Urine Bilirubin Urine Urobilinogen Urine Leukocytes Urine RBC Urine WBC Ur Squamous Epith Cells Ur Renal Epithelial Cell Urine Bacteria Granular Casts Urine Mucus Ur Culture Indicated? 10/27/16 22:00 WBC RBC Hgb Hct MCV MCH MCHC RDW Plt Count MPV Neut % (Auto) Lymph % (Auto) [place] % (Auto) Eos % (Auto) Baso % (Auto) Neut # (Auto) Lymph # (Auto) [place] # (Auto) Eos # (Auto) Baso # (Auto) Total Counted Immature Gran % Nucleated RBC % Immature Gran # Nucleated RBCs # Sodium Potassium Chloride Carbon Dioxide Anion Gap BUN Creatinine GFR Calculation BUN/Creatinine Ratio Glucose POC Glucose Hemoglobin A1c Calculated Osmolality Calcium Magnesium Total Bilirubin AST ALT Alkaline Phosphatase Total Protein Albumin Globulin Albumin/Globulin Ratio Triglycerides Cholesterol LDL Cholesterol VLDL Cholesterol HDL Cholesterol Heart Disease Risk Ratio Free T4 TSH 3rd Generation Urine Color Yellow Urine Appearance Slightly hazy Urine pH 5.0 Ur Specific [place] 1.010 Urine Protein >=500 Urine Glucose (UA) 50 Urine Ketones Negative Urine Blood Small Urine Nitrate Negative Urine Bilirubin Negative Urine Urobilinogen < 2.0 H Urine Leukocytes Negative Urine RBC 4 Urine WBC 3 Ur Squamous Epith Cells Occasional Ur Renal Epithelial Cell Occasional Urine Bacteria Occasional Granular Casts 4 Urine Mucus Occasional Ur Culture Indicated? Not indicated Preliminary micro results at discharge 10/27/16 13:57 Blood Culture - Preliminary Blood No growth at 1 day 10/27/16 13:58 Blood Culture - Preliminary Blood No growth at 1 day DS: Provider Date of admission: 10/27/16 13:02 Primary care physician: . No PCP Attending physician on admission: Abiodun Ansari DO Consults: 10/27/16 12:36 Consult to Physician [CONS] Routine Comment: renal failure Consulting Provider: Malachi Oliveira Consulting Provider Notified: Yes When should Consulting Provider be notified: Now Consult to Specialist Group: Nephrology When should Consulting Provider be notified: Now Person Notified: CATHIE Date Notified: 10/27/16 Time Notified: 14:32 10/27/16 14:29 Consult to Physician [CONS] Routine Comment: needs dialysis catheter Consulting Provider: Jose,Bill III. Consulting Provider Notified: Yes When should Consulting Provider be notified: Now Consult to Specialist Group: Surgery When should Consulting Provider be notified: Now Person Notified: ZURI Date Notified: 10/27/16 Time Notified: 14:15 10/27/16 14:47 Consult to Dietitian [CONS] Routine Reason for Dietitian: Other Consult Comment: admission assessment Discharging clinician: Abiodun Ansari DO
[2016-10-28 22:03] VITALS: BP 166/95
[2016-10-29] MEDS ORDERED: LEVOTHYROXINE 100 MCG TABLET PO SCH (07:00)
--- NOTE | 2016-10-29 16:37 | Dialysis Note ---
Dialysis Note - Dialysis Note This is a delayed entry note for 10/28/16 He was seen during dialysis. His access is working he states he feels better since dialysis began outpatient schedule will be assigned. He is able for discharge after dialysis
== END 2016-10-28 20:00 | disposition home or self-care (01) | DRG 683 ==
LOC: N.ADMINP 13:02 → N.4E 13:28
PROVIDERS: ADMIT Family Medicine; ATTEND Family Medicine

== ENCOUNTER 2017-03-05 17:56 | Inpatient (IN) ==
[2017-03-05] MEDS ORDERED: hydrALAZINE 20 MG/1 ML VIAL IV STA ×2 (18:53→19:43)
[2017-03-05] MEDS ORDERED: hydrALAZINE 20 MG/1 ML VIAL ONE ×2 (18:59→19:49)
[2017-03-05] MEDS ORDERED: MORPHINE 2 MG/1 ML SYRINGE IV STA (19:43)
[2017-03-05] MEDS ORDERED: ONDANSETRON 4 MG/2 ML VIAL IV STA (19:44)
[2017-03-05] MEDS ORDERED: ONDANSETRON 4 MG/2 ML VIAL ONE (19:49)
[2017-03-05] MEDS ORDERED: MORPHINE 2 MG/1 ML SYRINGE ONE (19:49)
[2017-03-05] MEDS ORDERED: HYDROmorphone 2 MG/1 ML VIAL IV STA (20:37)
[2017-03-05] MEDS ORDERED: HYDROmorphone 2 MG/1 ML VIAL ONE (21:42)
[2017-03-05 21:59] LABS: Basophils % 0.6 % (0.0-0.8); Eosinophils # 0.1 10*3/uL (0.0-0.87); Eosinophils % 0.9 % (0.00-10.9); Hematocrit 30.3 VOL% (42.0-52.0); Hemoglobin 10.4 GM/DL (14.0-18.0); Immature Granulocytes % 0.4 %; Immature Granulocytes Absolute 0.03 #; Lymphocytes # 1.2 10*3/uL (1.4-4.0); Lymphocytes % 16.9 % (21.2-54.2); Mean Corpuscular HGB Conc 34.3 GM/DL (32-36); Mean Corpuscular Hemoglobin 27 PG (27-34); Mean Corpuscular Volume 79.7 FL (87-102); Mean Platelet Volume 9.7 FL (9.6-12.0); Monocytes # 0.8 10*3/uL (0.11-0.8); Monocytes % 11.2 % (1.7-12.7); Neutrophils # 4.9 10*3/uL (1.4-7.4); Platelet Count 166 T/CUMM (130-400); Red Cell Distribution Width 14.7 % (9.3-17.3)
[2017-03-05 22:18] LABS: Albumin 2.8 G/DL (3.4-5.0); Alkaline Phosphatase 74 U/L (45-117); Aspartate Amino Transferase 10 U/L (0-37); Bilirubin,Total < 0.39 MG/DL (0.2-1.0); Blood Urea Nitrogen 60 MG/DL (7-18); Calcium 7.5 MG/DL (8.5-10.1); Glucose 120 MG/DL (74-106); Osmolality,Calculated 290.8 MOS/KG (273-304); Potassium 4.3 MMOL/L (3.5-5.1); Sodium 137 MMOL/L (136-145); Total Protein 6.2 G/DL (6.4-8.3)
[2017-03-05 22:25] LABS: Alanine Aminotransferase < 9 U/L (16-61)
[2017-03-05] MEDS ORDERED: DEXTROSE 50% 25 GM/50 ML VIAL IV PRN (22:48)
[2017-03-05] MEDS ORDERED: MORPHINE 2 MG/1 ML SYRINGE IV PRN (22:48)
[2017-03-05] MEDS ORDERED: GLUCAGON 1 MG VIAL IM PRN (22:48)
[2017-03-05] MEDS ORDERED: ONDANSETRON 4 MG/2 ML VIAL IV PRN (22:48)
[2017-03-06] MEDS ORDERED: METOPROLOL TARTRATE 100 MG TABLET PO SCH (09:00)
[2017-03-06] MEDS: FUROSEMIDE 40 MG TABLET PO SCH ×2 (11:33→15:42)
[2017-03-06] MEDS: LEVOTHYROXINE 100 MCG TABLET PO SCH (11:34)
[2017-03-06] MEDS ORDERED: ONDANSETRON 4 MG TABLET PO PRN (11:53)
[2017-03-06 12:48] LABS: Folate 12.6 NG/ML (5.4-24.0)
[2017-03-06] MEDS ORDERED: HEPARIN 10,000 UNIT/10 ML VIAL IV PRN (13:22)
[2017-03-06] MEDS: MINOXIDIL 2.5 MG TABLET PO SCH ×2 (14:07→21:15)
[2017-03-06] MEDS: CARVEDILOL 12.5 MG TABLET PO SCH (21:15)
[2017-03-06] MEDS: TAMSULOSIN 0.4 MG CAPSULE PO SCH (21:15)
[2017-03-07] MEDS: LEVOTHYROXINE 100 MCG TABLET PO SCH (06:01)
[2017-03-07] MEDS: CARVEDILOL 12.5 MG TABLET PO SCH ×2 (08:18→20:26)
[2017-03-07] MEDS: FUROSEMIDE 40 MG TABLET PO SCH ×2 (08:18→15:57)
[2017-03-07] MEDS: MINOXIDIL 2.5 MG TABLET PO SCH ×2 (09:24→20:25)
[2017-03-07] MEDS: TAMSULOSIN 0.4 MG CAPSULE PO SCH (20:25)
[2017-03-08 05:16] LABS: Basophils % 0.5 % (0.0-0.8); Eosinophils # 0.2 10*3/uL (0.0-0.87); Eosinophils % 3.1 % (0.00-10.9); Hematocrit 29.3 VOL% (42.0-52.0); Hemoglobin 9.7 GM/DL (14.0-18.0); Immature Granulocytes % 0.3 %; Immature Granulocytes Absolute 0.02 #; Lymphocytes # 1.4 10*3/uL (1.4-4.0); Lymphocytes % 22.2 % (21.2-54.2); Mean Corpuscular HGB Conc 33.1 GM/DL (32-36); Mean Corpuscular Hemoglobin 27 PG (27-34); Mean Corpuscular Volume 80.5 FL (87-102); Mean Platelet Volume 11.1 FL (9.6-12.0); Monocytes # 0.7 10*3/uL (0.11-0.8); Monocytes % 11.8 % (1.7-12.7); Neutrophils # 3.8 10*3/uL (1.4-7.4); Neutrophils % 62.1 % (38.7-73.9); Platelet Count 174 T/CUMM (130-400); Red Blood Count 3.64 MC/CUMM (3.8-5.5); Red Cell Distribution Width 14.4 % (9.3-17.3); White Blood Count 6.1 T/CUMM (4-12)
[2017-03-08 05:48] LABS: Calcium 7.8 MG/DL (8.5-10.1); Magnesium 2.2 MG/DL (1.8-2.4); Osmolality,Calculated 277.2 MOS/KG (273-304); Potassium 4.4 MMOL/L (3.5-5.1)
[2017-03-08] MEDS: LEVOTHYROXINE 100 MCG TABLET PO SCH (06:36)
[2017-03-08] MEDS: CARVEDILOL 12.5 MG TABLET PO SCH ×2 (09:38→21:46)
[2017-03-08] MEDS: MINOXIDIL 2.5 MG TABLET PO SCH ×2 (09:38→21:46)
[2017-03-08] MEDS: FUROSEMIDE 40 MG TABLET PO SCH ×2 (09:38→17:13)
[2017-03-08] MEDS: VALSARTAN 80 MG TABLET PO SCH (14:02)
[2017-03-08] MEDS: TAMSULOSIN 0.4 MG CAPSULE PO SCH (21:46)
[2017-03-09 04:14] LABS: Basophils # 0.1 10*3/uL (0.0-0.2); Basophils % 0.7 % (0.0-0.8); Eosinophils # 0.2 10*3/uL (0.0-0.87); Eosinophils % 2.1 % (0.00-10.9); Hematocrit 30.4 VOL% (42.0-52.0); Hemoglobin 10.1 GM/DL (14.0-18.0); Immature Granulocytes % 0.3 %; Immature Granulocytes Absolute 0.02 #; Lymphocytes # 1.3 10*3/uL (1.4-4.0); Lymphocytes % 17.7 % (21.2-54.2); Mean Corpuscular HGB Conc 33.2 GM/DL (32-36); Mean Corpuscular Hemoglobin 27 PG (27-34); Mean Corpuscular Volume 80.4 FL (87-102); Monocytes # 0.7 10*3/uL (0.11-0.8); Neutrophils # 5.3 10*3/uL (1.4-7.4); Neutrophils % 70.2 % (38.7-73.9); Platelet Count 191 T/CUMM (130-400); Red Blood Count 3.78 MC/CUMM (3.8-5.5); Red Cell Distribution Width 14.6 % (9.3-17.3); White Blood Count 7.6 T/CUMM (4-12)
[2017-03-09 04:41] LABS: Calcium 7.7 MG/DL (8.5-10.1); Magnesium 2.3 MG/DL (1.8-2.4); Osmolality,Calculated 279.2 MOS/KG (273-304)
[2017-03-09] MEDS: LEVOTHYROXINE 100 MCG TABLET PO SCH (06:02)
[2017-03-09] MEDS: VALSARTAN 80 MG TABLET PO SCH (08:42)
[2017-03-09] MEDS: FUROSEMIDE 40 MG TABLET PO SCH ×2 (08:42→17:14)
[2017-03-09] MEDS: MINOXIDIL 2.5 MG TABLET PO SCH ×2 (08:42→17:15)
[2017-03-09] MEDS: CARVEDILOL 12.5 MG TABLET PO SCH ×2 (08:42→17:14)
[2017-03-09 11:23] VITALS: BP 160/69
== END 2017-03-09 17:40 | disposition home or self-care (01) | DRG 313 ==
LOC: EDBD → EDUNIT# → N.ED 17:56 → N.EDINP 22:48 → N.TELES 23:57
PROVIDERS: ADMIT Family Medicine; ATTEND Family Medicine

== ENCOUNTER 2018-03-28 02:27 | Inpatient (IN) ==
[2018-03-28] MEDS ORDERED: SODIUM CHLORIDE 0.9% 1,000 ML IV STA (02:41)
[2018-03-28 03:14] LABS: INR 1.3; PT Patient Result 14.2 SECS
[2018-03-28 03:35] LABS: Albumin 2.3 G/DL (3.4-5.0); Alkaline Phosphatase 38 U/L (45-117); Potassium 3.1 MMOL/L (3.5-5.1); Sodium 147 MMOL/L (136-145); Total Protein 4.8 G/DL (6.4-8.3)
[2018-03-28] MEDS ORDERED: PROPOFOL 1,000 MG/100 ML BOTTLE IV ONE (03:35)
[2018-03-28 03:36] LABS: Alanine Aminotransferase 34 U/L (16-61); Aspartate Amino Transferase 30 U/L (0-37)
[2018-03-28 03:38] LABS: Blood Urea Nitrogen 53 MG/DL (7-18); Glucose 144 MG/DL (74-106); Osmolality,Calculated 308.4 MOS/KG (273-304)
[2018-03-28] MEDS ORDERED: SODIUM CHLORIDE 0.9% 500 ML IV STA (03:43)
[2018-03-28] MEDS ORDERED: MAGNESIUM SULF RIDER 1 GM in PREMIX 1 EACH IV STA (03:43)
[2018-03-28 03:44] LABS: Basophils # 0.1 10*3/uL (0.0-0.2); Basophils % 0.8 % (0.0-0.8); Eosinophils # 0.3 10*3/uL (0.0-0.87); Eosinophils % 4.3 % (0.00-10.9); Hematocrit 29.8 VOL% (42.0-52.0); Immature Granulocytes % 1.2 %; Immature Granulocytes Absolute 0.08 #; Lymphocytes # 2.3 10*3/uL (1.4-4.0); Lymphocytes % 35.9 % (21.2-54.2); Mean Corpuscular HGB Conc 31.9 GM/DL (32-36); Mean Corpuscular Hemoglobin 28 PG (27-34); Mean Corpuscular Volume 87.9 FL (87-102); Mean Platelet Volume 10.9 FL (9.6-12.0); Monocytes # 0.5 10*3/uL (0.11-0.8); Monocytes % 7.5 % (1.7-12.7); Neutrophils # 3.3 10*3/uL (1.4-7.4); Neutrophils % 50.3 % (38.7-73.9); Platelet Count 185 T/CUMM (130-400); Red Blood Count 3.39 MC/CUMM (3.8-5.5); White Blood Count 6.5 T/CUMM (4-12)
[2018-03-28 03:46] LABS: Hemoglobin 9.5 GM/DL (14.0-18.0)
[2018-03-28] MEDS: PROPOFOL 1,000 MG/100 ML BOTTLE IV SCH ×3 (03:47→20:31)
[2018-03-28 03:50] LABS: Calcium < 5.0 MG/DL (8.5-10.1)
[2018-03-28 03:53] LABS: ABG Base Excess -7.3 MMOL/L (-2.5-2.5); ABG HCO3 18.4 MMOL/L (20-26); ABG Oxygen Saturation 99.1 % (95-100); ABG PCO2 48.7 MM HG (35-48); ABG PH 7.227 (7.35-7.45); Allen Test Positive; Pt O2 Delivery Device Ventilator
[2018-03-28] MEDS ORDERED: MAGNESIUM SULF RIDER 50 ML IV ONE (04:19)
[2018-03-28] MEDS ORDERED: ALBUTEROL/IPRATROPIUM 3 ML NEB RESP TX PRN (04:26)
[2018-03-28] MEDS ORDERED: ONDANSETRON 4 MG/2 ML VIAL IV PRN (04:26)
[2018-03-28] MEDS ORDERED: PROPOFOL 1,000 MG/100 ML BOTTLE IV SCH (04:30)
[2018-03-28] MEDS ORDERED: POTASSIUM CHLORIDE RIDER 10 MEQ in PREMIX 1 EACH IV PRN (06:15)
[2018-03-28] MEDS ORDERED: MAGNESIUM SULF RIDER 2 GM in PREMIX 1 EACH IV PRN (06:15)
[2018-03-28] MEDS ORDERED: POTASSIUM CHLORIDE RIDER 20 MEQ in PREMIX 1 EACH IV PRN (06:15)
[2018-03-28] MEDS ORDERED: INSULIN REGULAR 100 UNIT/ML IV ONE (06:15)
[2018-03-28] MEDS ORDERED: MAGNESIUM SULF RIDER 4 GM in PREMIX 1 EACH IV PRN (06:15)
[2018-03-28] MEDS ORDERED: LORazepam 2 MG/1 ML VIAL ONE (06:28)
[2018-03-28] MEDS: LORazepam 2 MG/1 ML VIAL IV PRN ×2 (06:31→17:47)
[2018-03-28] MEDS ORDERED: VECURONIUM 10 MG VIAL IV ONE ×2 (06:38→06:40)
[2018-03-28 07:51] LABS: ABG Base Excess -6.9 MMOL/L (-2.5-2.5); ABG HCO3 21.5 MMOL/L (20-26); ABG Oxygen Saturation 95.1 % (95-100); ABG PCO2 57.4 MM HG (35-48); ABG PO2 96.4 MM HG (80-95); ABG TCO2 23.2 MMOL/L (23-27)
[2018-03-28 07:52] LABS: ABG PH 7.191 (7.35-7.45)
[2018-03-28] MEDS: CISATRACURIUM 200 MG in SODIUM CHLORIDE 0.9% 180 ML IV SCH ×2 (07:56→22:39)
[2018-03-28 07:59] LABS: Basophils % 0.4 % (0.0-0.8); Eosinophils % 0.2 % (0.00-10.9); Hematocrit 31.2 VOL% (42.0-52.0); Hemoglobin 9.8 GM/DL (14.0-18.0); Immature Granulocytes % 0.5 %; Immature Granulocytes Absolute 0.05 #; Lymphocytes # 0.7 10*3/uL (1.4-4.0); Lymphocytes % 6.6 % (21.2-54.2); Mean Corpuscular HGB Conc 31.4 GM/DL (32-36); Mean Corpuscular Hemoglobin 27 PG (27-34); Mean Corpuscular Volume 86.4 FL (87-102); Mean Platelet Volume 10.9 FL (9.6-12.0); Monocytes # 0.9 10*3/uL (0.11-0.8); Monocytes % 9.2 % (1.7-12.7); Neutrophils # 8.5 10*3/uL (1.4-7.4); Neutrophils % 83.1 % (38.7-73.9); Platelet Count 197 T/CUMM (130-400); Red Blood Count 3.61 MC/CUMM (3.8-5.5); Red Cell Distribution Width 15.1 % (9.3-17.3); White Blood Count 10.3 T/CUMM (4-12)
[2018-03-28] MEDS ORDERED: NITROGLYCERIN DRIP 50 MG/250 ML BOTTLE IV PRN (08:01)
[2018-03-28] MEDS: NITROGLYCERIN DRIP 50 MG/250 ML BOTTLE IV PRN (08:05)
[2018-03-28] MEDS: fentaNYL INJ 1,250 MCG in SODIUM CHLORIDE 0.9% 225 ML IV PRN ×2 (08:07→19:32)
[2018-03-28 08:10] LABS: INR 1.1; PT Patient Result 11.4 SECS; Partial Thromboplastin Time 28.1 SECS (0-40)
[2018-03-28 08:15] LABS: Lactic Acid 0.5 MMOL/L (0.4-2.0)
[2018-03-28 08:36] LABS: Albumin 3.7 G/DL (3.4-5.0); Bilirubin,Total 1.2 MG/DL (0.2-1.0); CKMB % 1.7 %; Calcium 7.5 MG/DL (8.5-10.1); Osmolality,Calculated 294.2 MOS/KG (273-304); Total Protein 8.4 G/DL (6.4-8.3)
[2018-03-28 08:38] LABS: Troponin I 0.507 NG/ML (0.00-0.045)
[2018-03-28 08:43] LABS: Potassium 6.9 MMOL/L (3.5-5.1)
[2018-03-28] MEDS ORDERED: FAMOTIDINE 20 MG/2 ML VIAL IV SCH ×2 (09:00→10:00)
[2018-03-28] MEDS: PANTOPRAZOLE 40 MG VIAL IV SCH (09:46)
[2018-03-28] MEDS: PIPERACILLIN/TAZOBACTAM 3,375 MG in SODIUM CHLORIDE 0.9% 100 ML IV SCH ×2 (09:46→21:05)
[2018-03-28 11:37] LABS: Basophils % 0.2 % (0.0-0.8); Hematocrit 27.7 VOL% (42.0-52.0); Immature Granulocytes % 0.5 %; Immature Granulocytes Absolute 0.05 #; Lymphocytes # 0.3 10*3/uL (1.4-4.0); Lymphocytes % 2.6 % (21.2-54.2); Mean Corpuscular HGB Conc 32.5 GM/DL (32-36); Mean Corpuscular Hemoglobin 28 PG (27-34); Mean Corpuscular Volume 85.2 FL (87-102); Mean Platelet Volume 10.8 FL (9.6-12.0); Monocytes % 10.2 % (1.7-12.7); Neutrophils # 8.8 10*3/uL (1.4-7.4); Neutrophils % 86.5 % (38.7-73.9); Platelet Count 137 T/CUMM (130-400); Red Blood Count 3.25 MC/CUMM (3.8-5.5); Red Cell Distribution Width 15.2 % (9.3-17.3); White Blood Count 10.1 T/CUMM (4-12)
[2018-03-28 11:46] LABS: INR 1.1; Partial Thromboplastin Time 28.5 SECS (0-40)
[2018-03-28 12:00] LABS: Lactic Acid 0.7 MMOL/L (0.4-2.0)
[2018-03-28 12:10] LABS: Eosinophils 1 % (0-10); Lymphocytes 2 % (20-55); Segmented Neutrophils 87 % (50-85); Total Cells Counted 100
[2018-03-28 12:11] LABS: Anisocytosis 1+; Platelet Estimate Decreased; Tear Drop Cells Few
[2018-03-28 12:12] LABS: Ovalocytes Few
[2018-03-28 12:13] LABS: Acanthocytes Few
[2018-03-28 12:14] LABS: CKMB % 2.1 %; Calcium 7.5 MG/DL (8.5-10.1); Osmolality,Calculated 299.1 MOS/KG (273-304)
[2018-03-28 12:21] LABS: Troponin I 0.509 NG/ML (0.00-0.045)
[2018-03-28 12:23] LABS: Potassium 6.9 MMOL/L (3.5-5.1)
[2018-03-28] MEDS: INSULIN REGULAR 100 UNIT/ML IV SCH ×3 (12:34→20:33)
[2018-03-28] MEDS ORDERED: HEPARIN 10,000 UNIT/10 ML VIAL IV PRN (14:53)
[2018-03-28] MEDS: CARVEDILOL 12.5 MG TABLET PO SCH (16:57)
[2018-03-28 17:45] LABS: Basophils % 0.2 % (0.0-0.8); Hematocrit 29.9 VOL% (42.0-52.0); Hemoglobin 9.9 GM/DL (14.0-18.0); Immature Granulocytes % 0.5 %; Immature Granulocytes Absolute 0.05 #; Lymphocytes # 0.4 10*3/uL (1.4-4.0); Lymphocytes % 3.7 % (21.2-54.2); Mean Corpuscular HGB Conc 33.1 GM/DL (32-36); Mean Corpuscular Hemoglobin 28 PG (27-34); Mean Corpuscular Volume 83.1 FL (87-102); Monocytes # 0.9 10*3/uL (0.11-0.8); Monocytes % 9.2 % (1.7-12.7); Neutrophils # 8.8 10*3/uL (1.4-7.4); Neutrophils % 86.4 % (38.7-73.9); Platelet Count 161 T/CUMM (130-400); White Blood Count 10.2 T/CUMM (4-12)
[2018-03-28 17:56] LABS: INR 1.1; PT Patient Result 11.8 SECS; Partial Thromboplastin Time 34.4 SECS (0-40)
[2018-03-28 18:09] LABS: Lactic Acid 0.7 MMOL/L (0.4-2.0)
[2018-03-28 18:10] LABS: CKMB % 2.7 %; Calcium 7.9 MG/DL (8.5-10.1); Osmolality,Calculated 281.8 MOS/KG (273-304); Potassium 3.5 MMOL/L (3.5-5.1)
[2018-03-28 18:12] LABS: Troponin I 0.443 NG/ML (0.00-0.045)
[2018-03-28 18:14] LABS: Band Neutrophils 2 % (0-10); Lymphocytes 5 % (20-55); Platelet Estimate Adequate; Segmented Neutrophils 86 % (50-85); Total Cells Counted 100
[2018-03-28 18:36] LABS: Acanthocytes Few; Anisocytosis 1+; Tear Drop Cells Few
[2018-03-28] MEDS: MINOXIDIL 2.5 MG TABLET PO SCH (21:08)
[2018-03-28] MEDS: MINERAL OIL/PETROLATUM OPH OINT 3.5 GM TUBE BOTH EYES SCH (21:41)
[2018-03-29 00:16] LABS: Basophils % 0.1 % (0.0-0.8); Hematocrit 26.4 VOL% (42.0-52.0); Hemoglobin 8.8 GM/DL (14.0-18.0); Immature Granulocytes % 0.4 %; Immature Granulocytes Absolute 0.03 #; Lymphocytes # 0.4 10*3/uL (1.4-4.0); Lymphocytes % 4.4 % (21.2-54.2); Mean Corpuscular HGB Conc 33.3 GM/DL (32-36); Mean Corpuscular Hemoglobin 28 PG (27-34); Mean Platelet Volume 10.6 FL (9.6-12.0); Monocytes # 0.6 10*3/uL (0.11-0.8); Monocytes % 6.9 % (1.7-12.7); Neutrophils # 7.4 10*3/uL (1.4-7.4); Neutrophils % 88.2 % (38.7-73.9); Platelet Count 140 T/CUMM (130-400); Red Blood Count 3.18 MC/CUMM (3.8-5.5); White Blood Count 8.4 T/CUMM (4-12)
[2018-03-29] MEDS: INSULIN REGULAR 100 UNIT/ML IV SCH ×11 (00:23→23:37)
[2018-03-29 00:24] LABS: INR 1.1; PT Patient Result 11.7 SECS; Partial Thromboplastin Time 29.8 SECS (0-40)
[2018-03-29 00:39] LABS: CKMB % 3.8 %; Calcium 7.4 MG/DL (8.5-10.1)
[2018-03-29 00:54] LABS: Troponin I 0.323 NG/ML (0.00-0.045)
[2018-03-29 01:08] LABS: Lactic Acid 0.8 MMOL/L (0.4-2.0)
[2018-03-29 01:39] LABS: Band Neutrophils 1 % (0-10); Lymphocytes 3 % (20-55); Platelet Estimate Decreased; Polychromasia Slight; Segmented Neutrophils 92 % (50-85); Total Cells Counted 100
[2018-03-29] MEDS: fentaNYL INJ 1,250 MCG in SODIUM CHLORIDE 0.9% 225 ML IV PRN ×3 (02:32→23:57)
[2018-03-29] MEDS: PROPOFOL 1,000 MG/100 ML BOTTLE IV SCH ×2 (03:58→21:00)
[2018-03-29 04:48] LABS: ABG Base Excess -2.4 MMOL/L (-2.5-2.5); ABG HCO3 21.8 MMOL/L (20-26); ABG Oxygen Saturation 98.9 % (95-100); ABG PCO2 34.9 MM HG (35-48); ABG PH 7.413 (7.35-7.45); ABG PO2 371.1 MM HG (80-95); ABG TCO2 22.8 MMOL/L (23-27)
[2018-03-29 06:32] LABS: Basophils % 0.1 % (0.0-0.8); Hemoglobin 8.4 GM/DL (14.0-18.0); Immature Granulocytes % 0.7 %; Immature Granulocytes Absolute 0.06 #; Lymphocytes # 0.3 10*3/uL (1.4-4.0); Lymphocytes % 3.6 % (21.2-54.2); Mean Corpuscular HGB Conc 33.6 GM/DL (32-36); Mean Corpuscular Hemoglobin 28 PG (27-34); Mean Corpuscular Volume 82.8 FL (87-102); Mean Platelet Volume 10.9 FL (9.6-12.0); Monocytes # 0.5 10*3/uL (0.11-0.8); Monocytes % 5.9 % (1.7-12.7); Neutrophils # 7.5 10*3/uL (1.4-7.4); Neutrophils % 89.7 % (38.7-73.9); Platelet Count 147 T/CUMM (130-400); Red Blood Count 3.02 MC/CUMM (3.8-5.5); Red Cell Distribution Width 14.9 % (9.3-17.3); White Blood Count 8.4 T/CUMM (4-12)
[2018-03-29 06:41] LABS: INR 1.1; PT Patient Result 12.2 SECS; Partial Thromboplastin Time 29.9 SECS (0-40)
[2018-03-29 06:48] LABS: Lactic Acid 0.9 MMOL/L (0.4-2.0)
[2018-03-29 06:50] LABS: CKMB % 4.5 %; Calcium 7.4 MG/DL (8.5-10.1); Osmolality,Calculated 283.1 MOS/KG (273-304); Potassium 4.3 MMOL/L (3.5-5.1)
[2018-03-29 06:51] LABS: Troponin I 0.217 NG/ML (0.00-0.045)
[2018-03-29 07:02] LABS: Band Neutrophils 4 % (0-10); Hypochromasia 1+; Lymphocytes 6 % (20-55); Microcytosis Slight; Ovalocytes Slight; Platelet Estimate Adequate; Segmented Neutrophils 86 % (50-85); Total Cells Counted 100
[2018-03-29] MEDS: CARVEDILOL 12.5 MG TABLET PO SCH ×2 (08:32→17:19)
[2018-03-29] MEDS: PANTOPRAZOLE 40 MG VIAL IV SCH (08:32)
[2018-03-29] MEDS: MINOXIDIL 2.5 MG TABLET PO SCH ×2 (08:32→20:28)
[2018-03-29] MEDS: CISATRACURIUM 200 MG in SODIUM CHLORIDE 0.9% 180 ML IV SCH ×2 (08:33→19:01)
[2018-03-29] MEDS: PIPERACILLIN/TAZOBACTAM 3,375 MG in SODIUM CHLORIDE 0.9% 100 ML IV SCH ×2 (08:33→20:20)
[2018-03-29] MEDS ORDERED: ACETAMINOPHEN 325 MG/10.15 ML UDCUP PO PRN (09:01)
[2018-03-29] MEDS: NITROGLYCERIN DRIP 50 MG/250 ML BOTTLE IV PRN (12:21)
[2018-03-29 12:22] LABS: Basophils % 0.1 % (0.0-0.8); Hematocrit 24.8 VOL% (42.0-52.0); Hemoglobin 8.2 GM/DL (14.0-18.0); Immature Granulocytes % 0.7 %; Immature Granulocytes Absolute 0.07 #; Lymphocytes # 0.3 10*3/uL (1.4-4.0); Lymphocytes % 3.5 % (21.2-54.2); Mean Corpuscular HGB Conc 33.1 GM/DL (32-36); Mean Corpuscular Hemoglobin 27 PG (27-34); Mean Corpuscular Volume 81.6 FL (87-102); Mean Platelet Volume 10.7 FL (9.6-12.0); Monocytes # 0.6 10*3/uL (0.11-0.8); Monocytes % 6.5 % (1.7-12.7); Neutrophils # 8.7 10*3/uL (1.4-7.4); Neutrophils % 89.2 % (38.7-73.9); Platelet Count 145 T/CUMM (130-400); Red Blood Count 3.04 MC/CUMM (3.8-5.5); Red Cell Distribution Width 14.8 % (9.3-17.3); White Blood Count 9.8 T/CUMM (4-12)
[2018-03-29 12:32] LABS: INR 1.1; PT Patient Result 12.4 SECS; Partial Thromboplastin Time 29.4 SECS (0-40)
[2018-03-29 12:43] LABS: Calcium 7.4 MG/DL (8.5-10.1); Potassium 4.3 MMOL/L (3.5-5.1)
[2018-03-29 12:47] LABS: Lactic Acid 0.8 MMOL/L (0.4-2.0)
[2018-03-29 12:51] LABS: Band Neutrophils 2 % (0-10); Hypochromasia 1+; Lymphocytes 3 % (20-55); Platelet Estimate Adequate; Segmented Neutrophils 90 % (50-85); Total Cells Counted 100
[2018-03-29 12:52] LABS: Acanthocytes Few; Ovalocytes Few
[2018-03-29] MEDS: NOREPINEPHRINE 16 MG in SODIUM CHLORIDE 0.9% 234 ML IV PRN (13:13)
[2018-03-29 17:33] LABS: Basophils % 0.1 % (0.0-0.8); Hematocrit 26.3 VOL% (42.0-52.0); Hemoglobin 8.8 GM/DL (14.0-18.0); Immature Granulocytes % 0.8 %; Immature Granulocytes Absolute 0.08 #; Lymphocytes # 0.3 10*3/uL (1.4-4.0); Lymphocytes % 3.1 % (21.2-54.2); Mean Corpuscular HGB Conc 33.5 GM/DL (32-36); Mean Corpuscular Hemoglobin 28 PG (27-34); Mean Corpuscular Volume 82.2 FL (87-102); Mean Platelet Volume 11.1 FL (9.6-12.0); Monocytes # 0.8 10*3/uL (0.11-0.8); Monocytes % 7.3 % (1.7-12.7); Neutrophils # 9.3 10*3/uL (1.4-7.4); Neutrophils % 88.7 % (38.7-73.9); Platelet Count 159 T/CUMM (130-400); White Blood Count 10.5 T/CUMM (4-12)
[2018-03-29 17:45] LABS: INR 1.1; PT Patient Result 12.3 SECS; Partial Thromboplastin Time 29.6 SECS (0-40)
[2018-03-29 17:55] LABS: Calcium 7.5 MG/DL (8.5-10.1); Osmolality,Calculated 283.1 MOS/KG (273-304); Potassium 4.3 MMOL/L (3.5-5.1)
[2018-03-29 18:06] LABS: Lactic Acid 0.7 MMOL/L (0.4-2.0)
[2018-03-29 18:10] LABS: Hypochromasia 1+; Lymphocytes 6 % (20-55); Ovalocytes Few; Segmented Neutrophils 85 % (50-85); Total Cells Counted 100
[2018-03-29 18:11] LABS: Platelet Estimate Adequate
[2018-03-29 18:12] LABS: Acanthocytes Few
[2018-03-29] MEDS: MINERAL OIL/PETROLATUM OPH OINT 3.5 GM TUBE BOTH EYES SCH (20:57)
[2018-03-29 21:46] LABS: ABG Base Excess -3.6 MMOL/L (-2.5-2.5); ABG HCO3 21.4 MMOL/L (20-26); ABG Oxygen Saturation 99.1 % (95-100); ABG PCO2 40.9 MM HG (35-48); ABG PH 7.338 (7.35-7.45); ABG TCO2 20.3 MMOL/L (23-27)
[2018-03-29 21:49] LABS: Basophils % 0.2 % (0.0-0.8); Hematocrit 26.5 VOL% (42.0-52.0); Hemoglobin 8.8 GM/DL (14.0-18.0); Immature Granulocytes % 0.8 %; Immature Granulocytes Absolute 0.09 #; Lymphocytes # 0.4 10*3/uL (1.4-4.0); Lymphocytes % 3.9 % (21.2-54.2); Mean Corpuscular HGB Conc 33.2 GM/DL (32-36); Mean Corpuscular Hemoglobin 27 PG (27-34); Mean Platelet Volume 10.4 FL (9.6-12.0); Monocytes # 1.1 10*3/uL (0.11-0.8); Monocytes % 9.9 % (1.7-12.7); Neutrophils # 9.3 10*3/uL (1.4-7.4); Neutrophils % 85.2 % (38.7-73.9); Platelet Count 164 T/CUMM (130-400); Red Blood Count 3.23 MC/CUMM (3.8-5.5); Red Cell Distribution Width 15.2 % (9.3-17.3)
[2018-03-29 22:02] LABS: INR 1.1; Partial Thromboplastin Time 29.5 SECS (0-40)
[2018-03-29 22:11] LABS: Albumin 2.8 G/DL (3.4-5.0); Bilirubin,Total 0.4 MG/DL (0.2-1.0); Calcium 7.4 MG/DL (8.5-10.1); Potassium 4.3 MMOL/L (3.5-5.1); Total Protein 6.9 G/DL (6.4-8.3)
[2018-03-29 22:17] LABS: CKMB % 5.1 %
[2018-03-29 22:20] LABS: Troponin I 0.154 NG/ML (0.00-0.045)
[2018-03-29 23:54] LABS: Basophils % 0.1 % (0.0-0.8); Eosinophils % 0.1 % (0.00-10.9); Hematocrit 25.9 VOL% (42.0-52.0); Hemoglobin 8.8 GM/DL (14.0-18.0); Immature Granulocytes % 1.3 %; Immature Granulocytes Absolute 0.14 #; Lymphocytes # 0.4 10*3/uL (1.4-4.0); Lymphocytes % 3.8 % (21.2-54.2); Mean Corpuscular Hemoglobin 28 PG (27-34); Mean Corpuscular Volume 82.5 FL (87-102); Mean Platelet Volume 11.2 FL (9.6-12.0); Monocytes # 1.1 10*3/uL (0.11-0.8); Monocytes % 10.1 % (1.7-12.7); Neutrophils # 9.2 10*3/uL (1.4-7.4); Neutrophils % 84.6 % (38.7-73.9); Platelet Count 172 T/CUMM (130-400); Red Blood Count 3.14 MC/CUMM (3.8-5.5); Red Cell Distribution Width 15.2 % (9.3-17.3); White Blood Count 10.8 T/CUMM (4-12)
[2018-03-30 00:02] LABS: INR 1.1; Partial Thromboplastin Time 29.6 SECS (0-40)
[2018-03-30 00:08] LABS: Calcium 7.3 MG/DL (8.5-10.1); Potassium 4.3 MMOL/L (3.5-5.1)
[2018-03-30 00:11] LABS: Lactic Acid 0.8 MMOL/L (0.4-2.0)
[2018-03-30] MEDS: CISATRACURIUM 200 MG in SODIUM CHLORIDE 0.9% 180 ML IV SCH ×2 (01:23→06:42)
[2018-03-30] MEDS: DEXTROSE 50% 25 GM/50 ML SYRINGE IV PRN ×2 (02:32→06:15)
[2018-03-30] MEDS ORDERED: DEXTROSE 50% 25 GM/50 ML SYRINGE IV ONE (02:35)
[2018-03-30] MEDS: INSULIN REGULAR 100 UNIT/ML IV SCH ×11 (02:38→22:16)
[2018-03-30 03:15] LABS: Band Neutrophils 10 % (0-10); Lymphocytes 5 % (20-55); Metamyelocytes 1 %; Platelet Estimate Normal; Segmented Neutrophils 76 % (50-85); Total Cells Counted 100
[2018-03-30 04:19] LABS: ABG Base Excess -3.1 MMOL/L (-2.5-2.5); ABG HCO3 21.7 MMOL/L (20-26); ABG Oxygen Saturation 98.5 % (95-100); ABG PCO2 37.8 MM HG (35-48); ABG PH 7.377 (7.35-7.45); ABG PO2 192.6 MM HG (80-95); ABG TCO2 22.9 MMOL/L (23-27)
[2018-03-30] MEDS: PROPOFOL 1,000 MG/100 ML BOTTLE IV SCH ×4 (05:15→22:53)
[2018-03-30 06:19] LABS: Basophils % 0.2 % (0.0-0.8); Eosinophils % 0.1 % (0.00-10.9); Hematocrit 24.9 VOL% (42.0-52.0); Hemoglobin 8.2 GM/DL (14.0-18.0); Immature Granulocytes % 1.9 %; Lymphocytes # 0.4 10*3/uL (1.4-4.0); Lymphocytes % 3.7 % (21.2-54.2); Mean Corpuscular HGB Conc 32.9 GM/DL (32-36); Mean Corpuscular Hemoglobin 27 PG (27-34); Mean Corpuscular Volume 82.5 FL (87-102); Mean Platelet Volume 11.2 FL (9.6-12.0); Monocytes # 1.2 10*3/uL (0.11-0.8); Monocytes % 11.1 % (1.7-12.7); Neutrophils # 8.6 10*3/uL (1.4-7.4); Platelet Count 169 T/CUMM (130-400); Red Blood Count 3.02 MC/CUMM (3.8-5.5); Red Cell Distribution Width 15.5 % (9.3-17.3); White Blood Count 10.4 T/CUMM (4-12)
[2018-03-30 06:28] LABS: INR 1.1; Partial Thromboplastin Time 29.3 SECS (0-40)
[2018-03-30 06:33] LABS: Calcium 7.3 MG/DL (8.5-10.1); Osmolality,Calculated 287.1 MOS/KG (273-304); Potassium 4.3 MMOL/L (3.5-5.1)
[2018-03-30 06:35] LABS: Lactic Acid 0.6 MMOL/L (0.4-2.0)
[2018-03-30 06:44] LABS: Band Neutrophils 1 % (0-10); Hypochromasia 1+; Lymphocytes 2 % (20-55); Platelet Estimate Adequate; Segmented Neutrophils 90 % (50-85); Total Cells Counted 100
[2018-03-30] MEDS: fentaNYL INJ 1,250 MCG in SODIUM CHLORIDE 0.9% 225 ML IV PRN ×4 (07:52→19:14)
[2018-03-30] MEDS: MINOXIDIL 2.5 MG TABLET PO SCH ×2 (08:33→20:26)
[2018-03-30] MEDS: CARVEDILOL 12.5 MG TABLET PO SCH ×2 (08:33→18:33)
[2018-03-30] MEDS: PANTOPRAZOLE 40 MG VIAL IV SCH (08:34)
[2018-03-30] MEDS: PIPERACILLIN/TAZOBACTAM 3,375 MG in SODIUM CHLORIDE 0.9% 100 ML IV SCH ×2 (08:38→20:26)
[2018-03-30] MEDS ORDERED: EPOETIN ALFA 10,000 UNIT/1 ML VIAL IV PRN (10:40)
[2018-03-30] MEDS: LORazepam 2 MG/1 ML VIAL IV PRN ×6 (11:41→23:26)
[2018-03-30 12:16] LABS: Basophils % 0.2 % (0.0-0.8); Eosinophils % 0.1 % (0.00-10.9); Hematocrit 22.9 VOL% (42.0-52.0); Hemoglobin 7.6 GM/DL (14.0-18.0); Immature Granulocytes % 2.4 %; Lymphocytes # 0.4 10*3/uL (1.4-4.0); Lymphocytes % 4.2 % (21.2-54.2); Mean Corpuscular HGB Conc 33.2 GM/DL (32-36); Mean Corpuscular Hemoglobin 28 PG (27-34); Mean Corpuscular Volume 83.3 FL (87-102); Mean Platelet Volume 10.9 FL (9.6-12.0); Monocytes # 0.7 10*3/uL (0.11-0.8); Monocytes % 8.6 % (1.7-12.7); Neutrophils # 7.1 10*3/uL (1.4-7.4); Neutrophils % 84.5 % (38.7-73.9); Platelet Count 149 T/CUMM (130-400); Red Blood Count 2.75 MC/CUMM (3.8-5.5); Red Cell Distribution Width 15.5 % (9.3-17.3); White Blood Count 8.4 T/CUMM (4-12)
[2018-03-30 12:35] LABS: Calcium 6.7 MG/DL (8.5-10.1); Eosinophils 1 % (0-10); Lymphocytes 8 % (20-55); Osmolality,Calculated 291.8 MOS/KG (273-304); Potassium 4.3 MMOL/L (3.5-5.1); Segmented Neutrophils 86 % (50-85); Total Cells Counted 100
[2018-03-30 12:36] LABS: Hypochromasia 1+; Microcytosis 1+; Ovalocytes Slight
[2018-03-30 12:37] LABS: Platelet Estimate Adequate
[2018-03-30 12:44] LABS: INR 1.1; PT Patient Result 11.6 SECS; Partial Thromboplastin Time 29.2 SECS (0-40)
[2018-03-30 12:46] LABS: Lactic Acid 0.9 MMOL/L (0.4-2.0)
[2018-03-30] MEDS ORDERED: PHENYTOIN INJ 1,000 MG in SODIUM CHLORIDE 0.9% 100 ML IV ONE (16:56)
[2018-03-30 17:30] LABS: Basophils % 0.3 % (0.0-0.8); Eosinophils % 0.4 % (0.00-10.9); Hematocrit 23.5 VOL% (42.0-52.0); Hemoglobin 7.8 GM/DL (14.0-18.0); Immature Granulocytes % 1.2 %; Immature Granulocytes Absolute 0.13 #; Lymphocytes # 0.6 10*3/uL (1.4-4.0); Lymphocytes % 5.2 % (21.2-54.2); Mean Corpuscular HGB Conc 33.2 GM/DL (32-36); Mean Corpuscular Hemoglobin 28 PG (27-34); Mean Corpuscular Volume 82.7 FL (87-102); Mean Platelet Volume 11.1 FL (9.6-12.0); Monocytes # 1.3 10*3/uL (0.11-0.8); Monocytes % 11.7 % (1.7-12.7); Neutrophils % 81.2 % (38.7-73.9); Platelet Count 174 T/CUMM (130-400); Red Blood Count 2.84 MC/CUMM (3.8-5.5); Red Cell Distribution Width 15.6 % (9.3-17.3); White Blood Count 11.1 T/CUMM (4-12)
[2018-03-30 17:40] LABS: PT Patient Result 11.2 SECS; Partial Thromboplastin Time 27.5 SECS (0-40)
[2018-03-30 17:57] LABS: Calcium 7.3 MG/DL (8.5-10.1); Potassium 3.5 MMOL/L (3.5-5.1)
[2018-03-30 18:00] LABS: Lactic Acid 0.8 MMOL/L (0.4-2.0)
[2018-03-30] MEDS: fentaNYL INJ 2,500 MCG in SODIUM CHLORIDE 0.9% 450 ML IV PRN (21:36)
[2018-03-30] MEDS: MINERAL OIL/PETROLATUM OPH OINT 3.5 GM TUBE BOTH EYES SCH (21:51)
[2018-03-31] MEDS: INSULIN REGULAR 100 UNIT/ML IV SCH ×12 (00:07→21:33)
[2018-03-31] MEDS: PHENYTOIN 100 MG/2 ML VIAL IV SCH ×3 (00:46→17:22)
[2018-03-31] MEDS: fentaNYL INJ 2,500 MCG in SODIUM CHLORIDE 0.9% 450 ML IV PRN ×3 (02:34→16:47)
[2018-03-31 04:01] LABS: ABG HCO3 23.6 MMOL/L (20-26); ABG Oxygen Saturation 98.4 % (95-100); ABG PCO2 43.4 MM HG (35-48); ABG PH 7.358 (7.35-7.45)
[2018-03-31 04:03] LABS: Basophils % 0.4 % (0.0-0.8); Eosinophils # 0.1 10*3/uL (0.0-0.87); Eosinophils % 0.8 % (0.00-10.9); Hematocrit 22.4 VOL% (42.0-52.0); Hemoglobin 7.4 GM/DL (14.0-18.0); Immature Granulocytes % 1.2 %; Immature Granulocytes Absolute 0.11 #; Lymphocytes # 0.7 10*3/uL (1.4-4.0); Lymphocytes % 7.4 % (21.2-54.2); Mean Corpuscular Hemoglobin 28 PG (27-34); Mean Corpuscular Volume 83.9 FL (87-102); Mean Platelet Volume 10.3 FL (9.6-12.0); Monocytes # 1.3 10*3/uL (0.11-0.8); Monocytes % 14.8 % (1.7-12.7); Neutrophils # 6.8 10*3/uL (1.4-7.4); Neutrophils % 75.4 % (38.7-73.9); Platelet Count 147 T/CUMM (130-400); Red Blood Count 2.67 MC/CUMM (3.8-5.5); Red Cell Distribution Width 15.6 % (9.3-17.3); White Blood Count 9.1 T/CUMM (4-12)
[2018-03-31 04:13] LABS: PT Patient Result 10.7 SECS; Partial Thromboplastin Time 27.6 SECS (0-40)
[2018-03-31 04:31] LABS: Alanine Aminotransferase 30 U/L (16-61); Albumin 2.4 G/DL (3.4-5.0); Alkaline Phosphatase 46 U/L (45-117); Aspartate Amino Transferase 36 U/L (0-37); Blood Urea Nitrogen 40 MG/DL (7-18); Calcium 6.8 MG/DL (8.5-10.1); Glucose 100 MG/DL (74-106); Osmolality,Calculated 282.8 MOS/KG (273-304); Potassium 3.8 MMOL/L (3.5-5.1); Sodium 137 MMOL/L (136-145); Total Protein 6.1 G/DL (6.4-8.3)
[2018-03-31 04:32] LABS: Troponin I 0.108 NG/ML (0.00-0.045)
[2018-03-31 04:57] LABS: Eosinophils 1 % (0-10); Lymphocytes 9 % (20-55); Segmented Neutrophils 79 % (50-85)
[2018-03-31 04:58] LABS: Hypochromasia Slight; Platelet Estimate Normal
[2018-03-31 04:59] LABS: Total Cells Counted 100
[2018-03-31] MEDS: PROPOFOL 1,000 MG/100 ML BOTTLE IV SCH ×3 (05:46→13:03)
[2018-03-31] MEDS: CISATRACURIUM 200 MG in SODIUM CHLORIDE 0.9% 180 ML IV SCH (06:57)
[2018-03-31] MEDS: LORazepam 2 MG/1 ML VIAL IV PRN ×7 (07:36→22:52)
[2018-03-31] MEDS: PANTOPRAZOLE 40 MG VIAL IV SCH (08:33)
[2018-03-31] MEDS: MINOXIDIL 2.5 MG TABLET PO SCH ×2 (08:33→21:33)
[2018-03-31] MEDS: CARVEDILOL 12.5 MG TABLET PO SCH ×2 (08:41→17:22)
[2018-03-31] MEDS: PIPERACILLIN/TAZOBACTAM 3,375 MG in SODIUM CHLORIDE 0.9% 100 ML IV SCH ×2 (08:42→21:34)
[2018-03-31] MEDS: NOREPINEPHRINE 16 MG in SODIUM CHLORIDE 0.9% 234 ML IV PRN (13:05)
[2018-03-31] MEDS: MORPHINE 4 MG/1 ML VIAL IV PRN ×4 (19:46→22:55)
[2018-03-31] MEDS: MINERAL OIL/PETROLATUM OPH OINT 3.5 GM TUBE BOTH EYES SCH (21:34)
[2018-03-31 23:46] VITALS: BP 71/33
[2018-04-01] MEDS: MORPHINE 4 MG/1 ML VIAL IV PRN (00:01)
[2018-04-01] MEDS: LORazepam 2 MG/1 ML VIAL IV PRN ×2 (00:04→01:53)
[2018-04-01] MEDS: INSULIN REGULAR 100 UNIT/ML IV SCH ×2 (00:05→01:27)
[2018-04-01] MEDS: PHENYTOIN 100 MG/2 ML VIAL IV SCH (01:27)
== END 2018-04-01 01:58 | disposition expired | DRG 296 ==
LOC: N.ED 02:27 → N.EDINP 04:26 → N.CC 05:32
PROVIDERS: ADMIT Family Medicine; ATTEND Family Medicine